=== PATIENT | female | born 1925 | race Caucasian/White ===

== ENCOUNTER 2016-08-18 13:57 | Emergency (ER) | payer MEDICARE, OTHER ==
[2016-08-18 14:46] VITALS: BP 121/59
--- NOTE | 2016-08-18 15:14 | EDM.PDOC ---
ED HPI Trauma - General Chief Complaint: Upper Extremity Injury/Pain Stated Complaint: LUMP IN LT ARM Time Seen by Provider: 08/18/16 14:50 Source: Reports: Patient History Limitations: Reports: No limitations - History of Present Illness INITIAL COMMENTS - FREE TEXT/NARRATIVE: History of present illness: [89-year-old female presenting with acute flareup of chronic pain in left shoulder. Patient indicates that she was doing some work in her house and does involve some lifting and an over abundance of extension of her arms. Patient has no degeneration in bilateral shoulders but presents today to address this acute pain.] Review of systems: As per history of present illness and below otherwise all systems reviewed and negative. Past medical history: As per history of present illness and as reviewed below otherwise noncontributory. Surgical history: As per history of present illness and as reviewed below otherwise noncontributory. Social history: No reported history of drug or alcohol abuse. Family history: As per history of present illness and as reviewed below otherwise noncontributory. Physical exam: HEENT: Atraumatic, normocephalic, pupils reactive, negative for conjunctival pallor or scleral icterus, mucous membranes moist, throat clear, neck supple, nontender, trachea midline. Lungs: Clear to auscultation, breath sounds equal bilaterally, chest nontender. Heart: S1S2, regular, negative for clicks, rubs, or JVD. Abdomen: Soft, nondistended, nontender. Negative for masses or hepatosplenomegaly. Negative for costovertebral tenderness. Pelvis: Stable nontender. Genitourinary: Deferred. Rectal: Deferred. Extremities: Crepitus to bilateral shoulders with some amount of tenderness on palpation as well as passive range of motion, PPP, good capillary refill to bilateral arms with consistent joint stiffness and guarding, negative for cords or calf pain. Neurovascular unremarkable. Neuro: Awake, alert, oriented. Cranial nerves II through XII unremarkable. Cerebellum unremarkable. Motor and sensory unremarkable throughout. Exam nonfocal. 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 Social & Family History - Tobacco Use Smoking Status *Q: Never Smoker Second Hand Smoke Exposure: No - Alcohol Use Days Per Week of Alcohol Use: 0 - Recreational Drug Use Recreational Drug Use: No Review of Systems - Review of Systems Review Of Systems: See Below (See history of present illness) Trauma Exam - Physical Exam Exam: See Below (See history of present illness) Course - Vital Signs Last Recorded V/S: Last Vital Signs Temp 36.8 C 08/18/16 14:10 Pulse 79 08/18/16 14:10 Resp 18 08/18/16 14:10 BP 121/59 L 08/18/16 14:10 Pulse Ox 95 08/18/16 14:10 - Orders/Labs/Meds Orders: Active Orders 24 hr Category Date Time Status Shoulder Comp Lt [CR] Stat Exams 08/18/16 14:58 Ordered Departure - Departure Time of Disposition: 15:32 Disposition: Home, Self-Care 01 Condition: good Clinical Impression: Shoulder pain, left Qualifiers: Chronicity: chronic Qualified Code(s): M25.512 - Pain in left shoulder; G89.29 - Other chronic pain Instructions: Shoulder Pain, [id number] Forms: ED Department Discharge Additional Instructions: The following information is given to patients seen in the emergency department who are being discharged to home. This information is to outline your options for follow-up care. We provide all patients seen in our emergency department with a follow-up referral. The need for follow-up, as well as the timing and circumstances, are variable depending upon the specifics of your emergency department visit. If you don't have a primary care physician on staff, we will provide you with a referral. We always advise you to contact your personal physician following an emergency department visit to inform them of the circumstance of the visit and for follow-up with them and/or the need for any referrals to a consulting specialist. The emergency department will also refer you to a specialist when appropriate. This referral assures that you have the opportunity for follow-up care with a specialist. All of these measure are taken in an effort to provide you with optimal care, which includes your follow-up. Under all circumstances we always encourage you to contact your private physician who remains a resource for coordinating your care. When calling for follow-up care, please make the office aware that this follow-up is from your recent emergency room visit. If for any reason you are refused follow-up, please contact the [facility] Emergency Department at and asked to speak to the emergency department charge nurse. Take medication as directed Followup with primary care provider Return to ED as needed as discussed - My Orders Last 24 Hours: My Active Orders 08/18/16 14:58 Shoulder Comp Lt [CR] Stat - Assessment/Plan Last 24 Hours: My Active Orders 08/18/16 14:58 Shoulder Comp Lt [CR] Stat
--- NOTE | 2016-08-18 15:24 | CR ---
EXAMINATION: Left shoulder HISTORY: Pain COMPARISON: None TECHNIQUE: 3 views FINDINGS: The severe joint space narrowing and osteoarthritic changes are noted within the left ian ohumeral joint. The humerus is high riding suggesting underlying rotator cuff arthropathy. Bone mine ralization appears osteopenic. No definite fracture or acute osseous abnormality. IMPRESSION: Severe osteoarthritic changes and joint space narrowing within the left glenohumeral agapito nt.
== END 2016-08-18 15:56 | disposition home or self-care (01) ==
LOC: MW.ED 13:57
DX: G89.29 Other chronic pain (principal); M25.512 Pain in left shoulder
CPT/HCPCS: 73030-26-LT; 73030-LT; 99283

== ENCOUNTER 2016-09-23 04:05 | Emergency (ER) | payer MEDICARE, OTHER ==
--- NOTE | 2016-09-23 04:36 | EDM.PDOC ---
[id number] Information: Reports: Patient History Limitations: Reports: No Limitations no pain verbalized Pain Score (Numeric/FACES): 0 - Related Data Allergies Allergy/AdvReac Type Severity Reaction Status Date / Time No Known Allergies Allergy Verified 03/06/14 08:39 Home Meds: Home Meds Azithromycin [Zithromax] 250 mg PO DAILY #6 tablet 09/23/16 [Rx] Prednisone [IMW: predniSONE] 60 mg PO WITHBREAKFAST #5 tab 09/23/16 [Rx] Past Medical History - Past Health History Medical/Surgical History: Denies Medical/Surgical History HEENT History: Reports: Hard of Hearing Cardiovascular History: Reports: None Musculoskeletal History: Reports: Other (See Below) 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 Social & Family History - Tobacco Use Smoking Status *Q: Never Smoker Second Hand Smoke Exposure: No - Caffeine Use Caffeine Use: Reports: Other - Alcohol Use Days Per Week of Alcohol Use: 0 - Recreational Drug Use Recreational Drug Use: No ED ROS GENERAL - Review of Systems Review Of Systems: See Below (Per history of present illness) ED EXAM, GENERAL - Physical Exam Exam: See Below (Per history of present illness) Course - Vital Signs Last Recorded V/S: Last Vital Signs Temp 36.6 C 09/23/16 06:05 Pulse 78 09/23/16 06:45 Resp 18 09/23/16 06:45 BP 125/75 09/23/16 06:45 Pulse Ox 95 09/23/16 06:45 - Orders/Labs/Meds Labs: Laboratory Tests 09/23/16 09/23/16 09/23/16 Range/Units 04:33 04:33 04:33 WBC 5.54 (4.0-11.0) K/uL RBC 4.62 (4.30-5.90) M/uL Hgb 12.9 (12.0-16.0) g/dL Hct 39.4 (36.0-46.0) % MCV 85.3 (80.0-98.0) fL MCH 27.9 (27.0-32.0) pg MCHC 32.7 (31.0-37.0) g/dL RDW Std Deviation 45.5 (28.0-62.0) fl RDW Coeff of Kamaljit 15 (11.0-15.0) % Plt Count 256 (150-400) K/uL MPV 9.60 (7.40-12.00) fL Neut % (Auto) 42.5 L (48.0-80.0) % Lymph % (Auto) 36.6 (16.0-40.0) % [place] % (Auto) 13.5 (0.0-15.0) % Eos % (Auto) 6.0 (0.0-7.0) % Baso % (Auto) 1.4 (0.0-1.5) % Neut # (Auto) 2.4 (1.4-5.7) K/uL Lymph # (Auto) 2.0 (0.6-2.4) K/uL [place] # (Auto) 0.8 (0.0-0.8) K/uL Eos # (Auto) 0.3 (0.0-0.7) K/uL Baso # (Auto) 0.1 (0.0-0.1) K/uL Nucleated RBC % 0.0 /100WBC Nucleated RBCs # 0 K/uL Sodium 141 (136-146) mmol/L Potassium 3.8 (3.5-5.1) mmol/L Chloride 107 (98-110) mmol/L Carbon Dioxide 21 (21-31) mmol/L BUN 13 (6.0-23.0) mg/dL Creatinine 0.7 (0.6-1.5) mg/dL Est Cr Clr Drug Dosing 45.07 mL/min Estimated GFR (MDRD) > 60.0 ml/min Glucose 99 (60-110) mg/dL Calcium 9.7 (8.8-10.8) mg/dL Total Bilirubin 0.6 (0.1-1.5) mg/dL AST 15 (5-40) IU/L ALT 9 (8-54) IU/L Alkaline Phosphatase 76 (40-150) Troponin I < 0.10 (0.0-0.29) NG/ML B-Natriuretic Peptide (<100) PG/ML Total Protein 6.9 (6.0-8.0) g/dL Albumin 3.8 (3.4-4.8) g/dL Globulin 3.1 (2.0-3.5) g/dL Albumin/Globulin Ratio 1.2 L (1.3-2.8) Urine Color Urine Appearance Urine pH (5.0-8.0) Ur Specific [place] (1.001-1.035) Urine Protein (NEGATIVE) mg/dL Urine Glucose (UA) (NEGATIVE) mg/dL Urine Ketones (NEGATIVE) mg/dL Urine Occult Blood (NEGATIVE) Urine Nitrite (NEGATIVE) Urine Bilirubin (NEGATIVE) Urine Urobilinogen (<2.0) EU/dL Ur Leukocyte Esterase (NEGATIVE) Urine RBC (0-2/HPF) Urine WBC (0-5/HPF) Ur Epithelial Cells (NONE-FEW) Urine Bacteria (NEGATIVE) 09/23/16 09/23/16 Range/Units 04:33 05:10 WBC (4.0-11.0) K/uL RBC (4.30-5.90) M/uL Hgb (12.0-16.0) g/dL Hct (36.0-46.0) % MCV (80.0-98.0) fL MCH (27.0-32.0) pg MCHC (31.0-37.0) g/dL RDW Std Deviation (28.0-62.0) fl RDW Coeff of Kamaljit (11.0-15.0) % Plt Count (150-400) K/uL MPV (7.40-12.00) fL Neut % (Auto) (48.0-80.0) % Lymph % (Auto) (16.0-40.0) % [place] % (Auto) (0.0-15.0) % Eos % (Auto) (0.0-7.0) % Baso % (Auto) (0.0-1.5) % Neut # (Auto) (1.4-5.7) K/uL Lymph # (Auto) (0.6-2.4) K/uL [place] # (Auto) (0.0-0.8) K/uL Eos # (Auto) (0.0-0.7) K/uL Baso # (Auto) (0.0-0.1) K/uL Nucleated RBC % /100WBC Nucleated RBCs # K/uL Sodium (136-146) mmol/L Potassium (3.5-5.1) mmol/L Chloride (98-110) mmol/L Carbon Dioxide (21-31) mmol/L BUN (6.0-23.0) mg/dL Creatinine (0.6-1.5) mg/dL Est Cr Clr Drug Dosing mL/min Estimated GFR (MDRD) ml/min Glucose (60-110) mg/dL Calcium (8.8-10.8) mg/dL Total Bilirubin (0.1-1.5) mg/dL AST (5-40) IU/L ALT (8-54) IU/L Alkaline Phosphatase (40-150) Troponin I (0.0-0.29) NG/ML B-Natriuretic Peptide 19 (<100) PG/ML Total Protein (6.0-8.0) g/dL Albumin (3.4-4.8) g/dL Globulin (2.0-3.5) g/dL Albumin/Globulin Ratio (1.3-2.8) Urine Color YELLOW Urine Appearance CLEAR Urine pH 6.5 (5.0-8.0) Ur Specific [place] <= 1.005 (1.001-1.035) Urine Protein NEGATIVE (NEGATIVE) mg/dL Urine Glucose (UA) NEGATIVE (NEGATIVE) mg/dL Urine Ketones NEGATIVE (NEGATIVE) mg/dL Urine Occult Blood NEGATIVE (NEGATIVE) Urine Nitrite NEGATIVE (NEGATIVE) Urine Bilirubin NEGATIVE (NEGATIVE) Urine Urobilinogen 0.2 (<2.0) EU/dL Ur Leukocyte Esterase SMALL (NEGATIVE) Urine RBC 0-1 (0-2/HPF) Urine WBC 0-3 (0-5/HPF) Ur Epithelial Cells RARE (NONE-FEW) Urine Bacteria RARE (NEGATIVE) Meds: Medications Discontinued Medications Generic Name Dose Route Start Last Admin Trade Name Mickie PRN Reason Stop Dose Admin Azithromycin 500 mg 09/23/16 06:18 09/23/16 06:26 Zithromax PO 09/23/16 06:19 500 mg NOW STA Administration Departure - Departure Time of Disposition: 06:25 Disposition: Home, Self-Care 01 Condition: Good Clinical Impression: COPD exacerbation - Discharge Information Prescriptions: Azithromycin [Zithromax] 250 mg PO DAILY #6 tablet Prednisone [IMW: predniSONE] 60 mg PO WITHBREAKFAST #5 tab Instructions: Chronic Obstructive Pulmonary Disease Exacerbation, [id number] Referrals: PCP,None [Primary Care Provider] - Forms: ED Department Discharge Additional Instructions: Your symptoms and findings tonight show that you had a COPD exacerbation. This means an attack of your wheezing that required treatment with medicines to open up her airways. Use her nebulizer at home as needed and finish prednisone once a day for 5 more days starting tomorrow. Prednisone is a strong anti- inflammatory that will help suppress inflammation in your lungs and keep your wheezing from coming back. Followup with your doctor today or tomorrow and return immediately for new severe or worsening symptoms or if you does change her mind and want to be admitted to the hospital ED HISTORY OF PRESENT ILLNESS - General Chief Complaint: Respiratory Problem Stated Complaint: DIFFICULTY BREATHING Time Seen by Provider: 09/23/16 04:19 Source of Information: Reports: Patient History Limitations: Reports: No Limitations - History of Present Illness INITIAL COMMENTS - FREE TEXT/NARRATIVE: HISTORY AND PHYSICAL: History of present illness: [89-year-old female lives at home history of COPD now with wheezing and increased shortness of breath. Patient states she has a nebulizer at home and uses it when she needs it but today has experienced subtotal relief. Denies chest pain. No fevers chills sweats or shaking chills.] Review of systems: As per history of present illness and below otherwise all systems reviewed and negative. Past medical history: As per history of present illness and as reviewed below otherwise noncontributory. Surgical history: As per history of present illness and as reviewed below otherwise noncontributory. Social history: No reported history of drug or alcohol abuse. Family history: As per history of present illness and as reviewed below otherwise noncontributory. Physical exam: HEENT: Atraumatic, normocephalic, pupils reactive, negative for conjunctival pallor or scleral icterus, mucous membranes moist, throat clear, neck supple, nontender, trachea midline. Lungs: Bilateral mild bronchospasm mild tachypnea, breath sounds equal bilaterally, chest nontender. Heart: S1S2, regular, negative for clicks, rubs, or JVD. Abdomen: Soft, nondistended, nontender. Negative for masses or hepatosplenomegaly. Negative for costovertebral tenderness. Pelvis: Stable nontender. Genitourinary: Deferred. Rectal: Deferred. Extremities: Atraumatic, negative for cords or calf pain. Neurovascular unremarkable. Neuro: Awake, alert, oriented. Cranial nerves grossly unremarkable. Cerebellum unremarkable. Motor and sensory unremarkable throughout. Exam nonfocal. Diagnostics: [Chest x-ray with left basilar opacity unchanged from prior study. Hyperinflation. Chronic changes. Interpreted by me, report reviewed EKG normal sinus rhythm at 81 normal axis no STEMI Therapeutics: [Neb given in route to hospital Medrol IV] Impression: COPD exacerbation] Acute bronchospasm Plan: [Signs and symptoms consistent with COPD exacerbation in elderly female with chronic respiratory disease. Full workup pending. Patient feels improved after Neb but still with persistent bronchospasm and mild tachypnea. findings of wheezing are bilateral. IV Solu-Medrol and DuoNeb administered. Definitive disposition and diagnosis as appropriate pending reevaluation and review of above. - Related Data Allergies/ADRs: Allergies Allergy/AdvReac Type Severity Reaction Status Date / Time No Known Allergies Allergy Verified 03/06/14 08:39 Home Meds: Home Meds Azithromycin [Zithromax] 250 mg PO DAILY #6 tablet 09/23/16 [Rx] Prednisone [IMW: predniSONE] 60 mg PO WITHBREAKFAST #5 tab 09/23/16 [Rx] Departure - Departure Time of Disposition: 06:23 Disposition: Home, Self-Care 01 Condition: Good Clinical Impression: COPD exacerbation Prescriptions: Azithromycin [Zithromax] 250 mg PO DAILY #6 tablet Prednisone [IMW: predniSONE] 60 mg PO WITHBREAKFAST #5 tab Instructions: Chronic Obstructive Pulmonary Disease Exacerbation, [id number] Referrals: PCP,None [Primary Care Provider] - Forms: ED Department Discharge Additional Instructions: Your symptoms and findings tonight show that you had a COPD exacerbation. This means an attack of your wheezing that required treatment with medicines to open up her airways. Use her nebulizer at home as needed and finish prednisone once a day for 5 more days starting tomorrow. Prednisone is a strong anti- inflammatory that will help suppress inflammation in your lungs and keep your wheezing from coming back. Followup with your doctor today or tomorrow and return immediately for new severe or worsening symptoms or if you does change her mind and want to be admitted to the hospital
[2016-09-23 05:02] LABS: CHLORIDE,CL 107 mmol/L (98-110); SODIUM,NA 141 mmol/L (136-146)
[2016-09-23] MEDS ORDERED: Azithromycin 250 MG Tab PO STA (06:18)
[2016-09-23 07:29] VITALS: BP 125/75
--- NOTE | 2016-09-23 12:44 | CR ---
EXAM DATE: 09/23/16 PATIENT'S AGE: 89 Patient: BEBE NAGEL Facility: [place], [place] Site . Site : [id number] Study: XRay Chest [id number] 4:45:26 AM Ordering Physician: Cipriano Norton Final Report: Indication: Shortness of breath Technique: Chest 1 view Comparison: 03/06/2014. Findings/Impression: Cardiovascular and mediastinum: Stable cardiomediastinal silhouette. An apparent hiatal hernia again noted. Lungs and pleural space: A persistent irregular left basilar opacity, not significantly changed. No consolidation or pleural effusions. Bones and soft tissues: No significant change. Dictated by Blaine Grullon MD @ 09/23/2016 4:57:22 AM Dictated by: Blaine Grullon MD @ 09/23/2016 04:57:31 (Electronic Signature) Report Signed by Proxy. [facility]
== END 2016-09-23 06:50 | disposition home or self-care (01) ==
LOC: MW.ED 04:05
DX: J44.1 Chronic obstructive pulmonary disease with (acute) exacerbation (principal); J98.01 Acute bronchospasm; Z79.899 Other long term (current) drug therapy
CPT/HCPCS: 36415; 71010; 80053; 81001; 83880; 84484; 85025; 93005; 99285; A9270; 99284

== ENCOUNTER 2017-02-18 12:18 | Inpatient (IN) | payer MEDICARE, OTHER ==
[2017-02-18] MEDS ORDERED: Acetaminophen 325 MG Tab PO PRN (14:35)
[2017-02-18] MEDS ORDERED: Sodium Chloride 0.9% 2.5 ML Syringe FLUSH PRN (14:35)
[2017-02-18] MEDS ORDERED: Albuterol 0.083% 2.5 MG/3 ML Neb Soln NEB PRN (14:35)
[2017-02-18] MEDS ORDERED: Azithromycin 250 MG Tab PO ONE (14:35)
[2017-02-18] MEDS ORDERED: Sodium Chloride 0.9% 1,000 ML IV SCH (14:45)
--- NOTE | 2017-02-18 14:49 | PCM.HP ---
H&P History of Present Illness - General Date of Service: 02/18/17 Admit Problem/Dx: Admission Diagnosis/Problem Admission Diagnosis/Problem Pneumonia Source of Information: Patient History Limitations: Reports: No Limitations - History of Present Illness Initial Comments - Free Text/Narative: This 89 year old female with no significant pmh presented to her PCP with concerns of dyspnea and cough. She reports this has been going on for about 1 month, but it has worsened the last couple days. She doesn't have a productive cough anymore, but did a few days ago. Denies fevers or sinus congestion. No chest pain or palpitations. She reprts lots of wheezing and dyspnea. She reports she doesn't like to take over the prescription medications, "they cause more trouble then they help". She only takes multivitamins at home. She doesn't smoke, rarely uses alcohol and no recreational drug use. At the clinic no leukocytosis noted, BMP WNL. CXR revealed infiltrate and patient had sats 89-90% on RA and dyspneic. She does live alone and direct admission requested for community acquired pneumonia. - Related Data Allergies/Adverse Reactions: Allergies Allergy/AdvReac Type Severity Reaction Status Date / Time No Known Allergies Allergy Verified 03/06/14 08:39 Home Medications: Home Meds Azithromycin [Zithromax] 250 mg PO DAILY #6 tablet 09/23/16 [Rx] Prednisone [IMW: predniSONE] 60 mg PO WITHBREAKFAST #5 tab 09/23/16 [Rx] Past Medical History - Past Health History Medical/Surgical History: Denies Medical/Surgical History HEENT History: Reports: Cataract (surgery to R eye for cataracts), Hard of Hearing Cardiovascular History: Reports: None. Denies: Afib, Blood Clots/VTE/DVT, CAD, High Cholesterol, Hypertension, [place] Respiratory History: Reports: SOB. Denies: COPD, PE, Sleep Apnea Gastrointestinal History: Reports: None. Denies: GERD, GI Bleed Genitourinary History: Reports: None. 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 Denies: CVA, TIA Psychiatric History: Reports: None. Denies: Alzheimers Disease, Anxiety, Depression Endocrine/Metabolic History: Reports: None. Denies: Diabetes, Type II, Hypothyroidism Hematologic History: Reports: None Immunologic History: Reports: None Oncologic (Cancer) History: Reports: None Dermatologic History: Reports: None - Infectious Disease History Infectious Disease History: Reports: None - Past Surgical History Head Surgeries/Procedures: Reports: None HEENT Surgical History: Reports: Cataract Surgery Cardiovascular Surgical History: Reports: None Respiratory Surgical History: Reports: None GI Surgical History: Reports: None Endocrine Surgical History: Reports: None Neurological Surgical History: Reports: None Musculoskeletal Surgical History: Reports: Knee Replacement Oncologic Surgical History: Reports: None Dermatological Surgical History: Reports: None Social & Family History - Family History Family Medical History: Noncontributory - Tobacco Use Smoking Status *Q: Never Smoker Second Hand Smoke Exposure: No - Caffeine Use Caffeine Use: Reports: Coffee, Tea - Alcohol Use Days Per Week of Alcohol Use: 1 Number of Drinks Per Day: 1 Total Drinks Per Week: 1 Date of Last Drink: 02/13/17 - Recreational Drug Use Recreational Drug Use: No - Living Situation & Occupation Living situation: Reports: Alone Occupation: Retired H&P Review of Systems - Review of Systems: Review Of Systems: See Below General: Reports: Decreased Appetite. Denies: Fever, Chills HEENT: Denies: Eye Pain, Headaches, Sinus Congestion, Sore Throat, Visual Changes Pulmonary: Reports: Shortness of Breath, Wheezing, Cough, Sputum. Denies: Hemoptysis Cardiovascular: Reports: No Symptoms. Denies: Chest Pain, Palpitations, Dyspnea on Exertion, Lightheadedness Gastrointestinal: Reports: No Symptoms. Denies: Abdominal Pain, Black Stool, Bloody Stool, Diarrhea, Distension, Nausea, Vomiting Genitourinary: Reports: No Symptoms. Denies: Dysuria, Frequency, Burning, Pain Skin: Reports: No Symptoms Neurological: Reports: No Symptoms. Denies: Confusion Hematologic/Lymphatic: Reports: No Symptoms Exam - Exam Exam: See Below - Vital Signs Vital Signs: Last Vital Signs Temp 97.1 F 02/18/17 12:26 Pulse 80 02/18/17 12:26 Resp 18 02/18/17 12:26 BP 140/66 02/18/17 12:26 Pulse Ox 92 L 02/18/17 12:26 Weight: 52.5 kg - Exam Quality Assessment: Supplemental Oxygen, DVT Prophylaxis General: Alert, Oriented, Cooperative HEENT: Conjunctiva Clear, Posterior Pharynx Clear. No: Mucosa Moist & [place] ( lips and tongue appear dry. ) Lungs: Rhonchi, Wheezing (throughout), Other (moist cough heard) Cardiovascular: Regular Rate, Regular Rhythm, Normal S1, Normal S2 GI/Abdominal Exam: Normal Bowel Sounds, Soft, Non-Tender, No Organomegaly, No Distention, No Abnormal Bruit, No Mass, Pelvis Stable Back Exam: Normal Inspection, Full Range of Motion, NT Extremities: Normal Inspection, Normal Range of Motion, Non-Tender, No Pedal Edema, Normal Capillary Refill Neuro Extensive - Mental Status: Alert, Oriented x3, Normal Mood/Affect, Normal Cognition Psychiatric: Alert, Normal Affect, Normal Mood *Q Meaningful Use (ADM) - VTE *Q VTE Criteria *Q: - Stroke *Q Stroke Criteria *Q: - AMI *Q AMI Criteria *Q: - Problem List (1) Community acquired pneumonia SNOMED Code(s): 352235023 ICD Code: J18.9 - PNEUMONIA, UNSPECIFIED ORGANISM Status: Acute Current Visit: Yes (2) Dyspnea SNOMED Code(s): 118017735 ICD Code: R06.00 - DYSPNEA, UNSPECIFIED Status: Acute Current Visit: No Onset Date: 02/21/14 Problem Details: subjective dyspnea Problem List Initiated/Reviewed/Updated: Yes Orders Last 24hrs: Active Orders 24 hr Category Date Time Status Patient Status [ADT] Routine ADT 02/18/17 14:35 Ordered Intake and Output [RC] QSHIFT Care 02/18/17 14:36 Ordered Oxygen Therapy [RC] PRN Care 02/18/17 14:35 Ordered RT Aerosol Therapy [RC] ASDIRECTED Care 02/18/17 14:38 Ordered Up With Assistance [RC] ASDIRECTED Care 02/18/17 14:35 Ordered VTE/DVT Education [RC] PER UNIT ROUTINE Care 02/18/17 14:35 Ordered Vital Signs [RC] Q4H Care 02/18/17 14:35 Ordered Regular Diet [DIET] Diet 02/18/17 Dinner Ordered BASIC METABOLIC PANEL,BMP [CHEM] AM Lab 02/19/17 05:11 Ordered CBC WITH AUTO DIFF [HEME] AM Lab 02/19/17 05:11 Ordered Acetaminophen [Tylenol] Med 02/18/17 14:35 Ordered 650 mg PO Q4H PRN Albuterol [Proventil Neb Soln] Med 02/18/17 14:35 Ordered 2.5 mg NEB Q2H PRN Albuterol/Ipratropium [DuoNeb 3.0-0.5 MG/3 ML] Med 02/18/17 14:38 Ordered 3 ml NEB Q4HRRT Azithromycin [Zithromax] Med 02/19/17 09:00 Ordered 250 mg PO Q24H Azithromycin [Zithromax] Med 02/18/17 14:35 Once 500 mg PO Q24H ONE Heparin Sodium Med 02/18/17 21:00 Ordered 5,000 units SUBCUT Q12HR Sodium Chloride 0.9% [Normal Saline] 1,000 ml Med 02/18/17 14:45 Ordered IV ASDIRECTED Sodium Chloride 0.9% [Saline Flush] Med 02/18/17 14:35 Ordered 2.5 ml FLUSH ASDIRECTED PRN cefTRIAXone [Rocephin in Dextrose,Iso-Osm 1 GM/50 ML] 1 Med 02/18/17 14:45 Ordered gm Premix Bag 1 bag IV Q24H Saline Lock Insert [OM.PC] Routine Oth 02/18/17 14:35 Ordered Resuscitation Status Routine Resus Stat 02/18/17 14:35 Ordered Medication Orders Acetaminophen (Tylenol) 650 mg PO Q4H PRN PRN Reason: Pain Albuterol (Proventil Neb Soln) 2.5 mg NEB Q2H PRN PRN Reason: Shortness Of Breath/wheezing Albuterol/Ipratropium (Duoneb 3.0-0.5 Mg/3 Ml) 3 ml NEB Q4HRRT [facility] Azithromycin (Zithromax) 500 mg PO Q24H ONE Stop: 02/18/17 14:36 Azithromycin (Zithromax) 250 mg PO Q24H [facility] Heparin Sodium (Porcine) (Heparin Sodium) 5,000 units SUBCUT Q12HR [facility] Ceftriaxone Sodium/Dextrose 1 (gm/ Premix) 50 mls @ 100 mls/hr IV Q24H [facility] Sodium Chloride (Normal Saline) 1,000 mls @ 75 mls/hr IV ASDIRECTED [facility] Stop: 02/19/17 04:04 Sodium Chloride (Saline Flush) 2.5 ml FLUSH ASDIRECTED PRN PRN Reason: Keep Vein Open Assessment/Plan Comment:: This 89 year old female admitted with community acquire pneumonia 1. CAP: Will treated with Azithromycin and Rocephin. Due to wheezing will add Solumderol 60 mg IV and monitor response. Duonebs and Oxygen PRN to keep sats 90 %. Sputum culture if possible. IS at bedside. Afebrile. Reviewed CXr from clinic , no official report, but hyperinflation is noted, no definite consolidation noted. Due to history of productive cough and hypoxia will continue to cover with antibiotics as well as Solumedrol. VTE prophylaxis: Heparin Dispo: 1-2 days pending improvement.
[2017-02-18] MEDS: cefTRIAXone 1 GM in Premix Bag 1 BAG IV SCH (15:54)
[2017-02-18] MEDS: methylPREDNISolone Sodium Succinate 125 MG/2 ML SDV IVPUSH SCH ×2 (16:03→22:29)
[2017-02-18] MEDS: Albuterol/Ipratropium 3.0-0.5 MG/3 ML Neb Soln NEB SCH ×3 (16:09→21:40)
[2017-02-18] MEDS: Heparin Sodium 5,000 Units/ML Vial SUBCUT SCH (20:31)
[2017-02-19] MEDS: Albuterol/Ipratropium 3.0-0.5 MG/3 ML Neb Soln NEB SCH ×6 (02:44→21:15)
[2017-02-19 06:16] LABS: CHLORIDE,CL 105 mmol/L (98-110); SODIUM,NA 137 mmol/L (136-146)
[2017-02-19] MEDS: methylPREDNISolone Sodium Succinate 125 MG/2 ML SDV IVPUSH SCH (06:41)
--- NOTE | 2017-02-19 08:34 | PCM.PN ---
- General Info Date of Service: 02/19/17 Admission Dx/Problem (Free Text): Admission Diagnosis/Problem Admission Diagnosis/Problem Pneumonia Subjective Update: Feeling better this morning, still having some wheezing, and SOB is better. No chest pain. "I feel just fine." Functional Status: Reports: Pain Controlled, Tolerating Diet, Ambulating, Urinating - Review of Systems General: Reports: No Symptoms. Denies: Fever HEENT: Reports: No Symptoms. Denies: Sore Throat, Visual Changes Pulmonary: Reports: Shortness of Breath, Wheezing Cardiovascular: Reports: No Symptoms. Denies: Chest Pain, Palpitations Gastrointestinal: Reports: No Symptoms. Denies: Abdominal Pain, Nausea, Vomiting Genitourinary: Reports: No Symptoms Neurological: Reports: No Symptoms Psychiatric: Reports: No Symptoms - Patient Data Vitals - Most Recent: Last Vital Signs Temp 97.6 F 02/19/17 07:47 Pulse 84 02/19/17 07:47 Resp 18 02/19/17 07:47 BP 133/58 L 02/19/17 07:47 Pulse Ox 92 L 02/19/17 07:47 Weight - Most Recent: 52.5 kg I&O - Last 24 Hours: Intake & Output 02/18/17 02/19/17 02/19/17 22:59 06:59 14:59 Intake Total 50 1700 Output Total 1650 Balance 50 50 Lab Results Last 24 Hours: Laboratory Results - last 24 hr 02/19/17 02/19/17 Range/Units 05:02 05:02 WBC 2.73 L (4.0-11.0) K/uL RBC 4.52 (4.30-5.90) M/uL Hgb 12.5 (12.0-16.0) g/dL Hct 38.7 (36.0-46.0) % MCV 85.6 (80.0-98.0) fL MCH 27.7 (27.0-32.0) pg MCHC 32.3 (31.0-37.0) g/dL RDW Std Deviation 45.6 (28.0-62.0) fl RDW Coeff of Kamaljit 15 (11.0-15.0) % Plt Count 236 (150-400) K/uL MPV 10.20 (7.40-12.00) fL Neut % (Auto) 86.4 H (48.0-80.0) % Lymph % (Auto) 11.0 L (16.0-40.0) % [place] % (Auto) 2.2 (0.0-15.0) % Eos % (Auto) 0.0 (0.0-7.0) % Baso % (Auto) 0.4 (0.0-1.5) % Neut # (Auto) 2.4 (1.4-5.7) K/uL Lymph # (Auto) 0.3 L (0.6-2.4) K/uL [place] # (Auto) 0.1 (0.0-0.8) K/uL Eos # (Auto) 0.0 (0.0-0.7) K/uL Baso # (Auto) 0.0 (0.0-0.1) K/uL Nucleated RBC % 0.0 /100WBC Nucleated RBCs # 0 K/uL Sodium 137 (136-146) mmol/L Potassium 4.2 (3.5-5.1) mmol/L Chloride 105 (98-110) mmol/L Carbon Dioxide 24 (21-31) mmol/L BUN 14 (6.0-23.0) mg/dL Creatinine 0.7 (0.6-1.5) mg/dL Est Cr Clr Drug Dosing 39.13 mL/min Estimated GFR (MDRD) > 60.0 ml/min Glucose 133 H (60-110) mg/dL Calcium 8.9 (8.8-10.8) mg/dL Tang Results Last 24 Hours: Microbiology 02/18/17 19:00 Gram Stain - Preliminary Sputum - Expectorated Med Orders - Current: Current Medications Acetaminophen (Tylenol) 650 mg PO Q4H PRN PRN Reason: Pain Albuterol (Proventil Neb Soln) 2.5 mg NEB Q2H PRN PRN Reason: Shortness Of Breath/wheezing Albuterol/Ipratropium (Duoneb 3.0-0.5 Mg/3 Ml) 3 ml NEB Q4HRRT [facility] Last Admin: 02/19/17 07:15 Dose: 3 ml Azithromycin (Zithromax) 250 mg PO Q24H ASIYA Heparin Sodium (Porcine) (Heparin Sodium) 5,000 units SUBCUT Q12HR [facility] Last Admin: 02/18/17 20:31 Dose: 5,000 units Ceftriaxone Sodium/Dextrose 1 (gm/ Premix) 50 mls @ 100 mls/hr IV Q24H [facility] Last Admin: 02/18/17 15:54 Dose: 100 mls/hr Methylprednisolone Sodium Succinate (Solu-Medrol) 60 mg IVPUSH Q8H [facility] Last Admin: 02/19/17 06:41 Dose: 60 mg Sodium Chloride (Saline Flush) 2.5 ml FLUSH ASDIRECTED PRN PRN Reason: Keep Vein Open Discontinued Medications Azithromycin (Zithromax) 500 mg PO Q24H ONE Stop: 02/18/17 14:36 Last Admin: 02/18/17 16:02 Dose: 500 mg Sodium Chloride (Normal Saline) 1,000 mls @ 75 mls/hr IV ASDIRECTED [facility] Stop: 02/19/17 04:04 Last Admin: 02/18/17 15:47 Dose: 75 mls/hr - Exam General: Alert, Oriented, Cooperative, No Acute Distress HEENT: Pupils Equal, Pupils Reactive, EOMI, Mucous Membr. Moist/[place] Neck: Supple Lungs: Normal Respiratory Effort, Wheezing (expiratory wheeze noted slightly, much improved from yesterday.) Cardiovascular: Regular Rate, Regular Rhythm GI/Abdominal Exam: Normal Bowel Sounds, Soft, Non-Tender, No Organomegaly, No Distention, No Abnormal Bruit, No Mass, Pelvis Stable Extremities: Normal Inspection, Normal Range of Motion, Non-Tender, No Pedal Edema, Normal Capillary Refill Psy/Mental Status: Alert, Normal Affect, Normal Mood - Problem List & Annotations (1) Community acquired pneumonia SNOMED Code(s): 244687194 Code(s): J18.9 - PNEUMONIA, UNSPECIFIED ORGANISM Status: Acute Current Visit: Yes (2) COPD exacerbation SNOMED Code(s): 009421468 Code(s): J44.1 - CHRONIC OBSTRUCTIVE PULMONARY DISEASE W (ACUTE) EXACERBATION Status: Acute Current Visit: No (3) Dyspnea SNOMED Code(s): 287759260 Code(s): R06.00 - DYSPNEA, UNSPECIFIED Status: Acute Current Visit: No Onset Date: 02/21/14 Annotation/Comment:: subjective dyspnea - Problem List Review Problem List Initiated/Reviewed/Updated: Yes - My Orders Last 24 Hours: My Active Orders 02/18/17 14:35 Patient Status [ADT] Routine Oxygen Therapy [RC] PRN Up With Assistance [RC] ASDIRECTED Vital Signs [RC] Q4H Acetaminophen [Tylenol] 650 mg PO Q4H PRN Albuterol [Proventil Neb Soln] 2.5 mg NEB Q2H PRN Sodium Chloride 0.9% [Saline Flush] 2.5 ml FLUSH ASDIRECTED PRN Saline Lock Insert [OM.PC] Routine Resuscitation Status Routine 02/18/17 14:36 Intake and Output [RC] Q12H 02/18/17 14:38 RT Aerosol Therapy [RC] ASDIRECTED Albuterol/Ipratropium [DuoNeb 3.0-0.5 MG/3 ML] 3 ml NEB Q4HRRT 02/18/17 15:00 cefTRIAXone [Rocephin in Dextrose,Iso-Osm 1 GM/50 ML] 1 gm Premix Bag 1 bag IV Q24H methylPREDNISolone Sod Succ [Solu-MEDROL] 60 mg IVPUSH Q8H 02/18/17 19:00 CULTURE SPUTUM + SMEAR [RM] Routine 02/18/17 21:00 Heparin Sodium 5,000 units SUBCUT Q12HR 02/18/17 Dinner Regular Diet [DIET] 02/19/17 16:00 Azithromycin [Zithromax] 250 mg PO Q24H - Plan Plan:: This 89 year old female admitted with community acquire pneumonia 1. CAP: Continue Azithromycin and Rocephin. Likely has some component of COPD, will discontinue Solumderol and start Prednisone 40 mg daily. Duonebs and Oxygen PRN to keep sats 90%. Sputum culture reveals gram + cocci in singles, chains and clusters. Will await TANG, clinically improving. IS at bedside. VTE prophylaxis: Heparin Dispo: 1-2 days pending improvement. Possible DC in am.
[2017-02-19] MEDS: Heparin Sodium 5,000 Units/ML Vial SUBCUT SCH ×2 (09:42→20:41)
[2017-02-19] MEDS: cefTRIAXone 1 GM in Premix Bag 1 BAG IV SCH (15:14)
[2017-02-19] MEDS: predniSONE 20 MG Tab PO SCH (15:20)
[2017-02-19] MEDS ORDERED: Azithromycin 250 MG Tab PO SCH (16:00)
[2017-02-20] MEDS: Albuterol/Ipratropium 3.0-0.5 MG/3 ML Neb Soln NEB SCH ×2 (02:15→05:38)
[2017-02-20 06:11] LABS: CHLORIDE,CL 107 mmol/L (98-110); SODIUM,NA 138 mmol/L (136-146)
[2017-02-20] MEDS: predniSONE 20 MG Tab PO SCH (08:03)
[2017-02-20] MEDS: Heparin Sodium 5,000 Units/ML Vial SUBCUT SCH (08:03)
[2017-02-20 08:11] VITALS: BP 131/71
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
== END 2017-02-20 09:20 | disposition home or self-care (01) | DRG 190 ==
LOC: MW.MS 12:18
PROVIDERS: ADMIT Internal Medicine; ATTEND Internal Medicine
DX: J44.0 Chronic obstructive pulmonary disease with (acute) lower respiratory infection (principal); J18.9 Pneumonia, unspecified organism; J44.1 Chronic obstructive pulmonary disease with (acute) exacerbation; R06.00 Dyspnea, unspecified; X02.0XXA Exposure to flames in controlled fire in building or structure, initial encounter; Y92.019 Unspecified place in single-family (private) house as the place of occurrence of the external cause; Z79.899 Other long term (current) drug therapy
CPT/HCPCS: 36415; 80048; 85025; 87070; 87205; A9270-GY; J0696; J1644; J2930; J7040

== ENCOUNTER 2017-02-26 12:54 | Emergency (ER) | payer MEDICARE, OTHER ==
[2017-02-26] MEDS ORDERED: Famotidine 20 MG/2 ML SDV IVPUSH ONE (13:31)
[2017-02-26] MEDS ORDERED: Aspirin 81 MG Tab.Chew PO ONE (13:31)
--- NOTE | 2017-02-26 13:32 | EDM.PDOC ---
ED HPI GENERAL MEDICAL PROBLEM - General Chief Complaint: Chest Pain Stated Complaint: PAIN IN RT LEG Time Seen by Provider: 02/26/17 13:15 Source of Information: Reports: Patient, Family History Limitations: Reports: No Limitations - History of Present Illness INITIAL COMMENTS - FREE TEXT/NARRATIVE: HISTORY AND PHYSICAL: History of present illness: Patient is an 89-year-old female who presents to the emergency room with complaints of pain which started around 9 AM in her right lower extremity and radiated up into her chest and bilateral shoulders. She states that she took an aspirin in the symptoms subsided. Told her family members of what occurred and they wanted her to come to be evaluated. Patient currently denies any chest pain , shortness of breath, abdominal pain, nausea or vomiting. Denies any fever or chills. Past medical history of pneumonia and COPD. Review of systems: As per history of present illness and below otherwise all systems reviewed and negative. Past medical history: As per history of present illness and as reviewed below otherwise noncontributory. Surgical history: As per history of present illness and as reviewed below otherwise noncontributory. Social history: No reported history of drug or alcohol abuse. Family history: As per history of present illness and as reviewed below otherwise noncontributory. Physical exam: Gen.: Well-developed and well-nourished 89-year-old female. Able to speak in full sentences without shortness of breath. Alert and oriented. HEENT: Atraumatic, normocephalic, pupils reactive, negative for conjunctival pallor or scleral icterus, mucous membranes moist, throat clear, neck supple, nontender, trachea midline. Hard of hearing. Lungs: Clear to auscultation, breath sounds equal bilaterally, chest nontender. Heart: S1S2, regular, negative for clicks, rubs, or JVD. Abdomen: Soft, nondistended, nontender. Negative for masses or hepatosplenomegaly. Negative for costovertebral tenderness. Pelvis: Stable nontender. Genitourinary: Deferred. Rectal: Deferred. Extremities: Atraumatic, negative for cords or calf pain. Neurovascular unremarkable. Neuro: Awake, alert, oriented. Cranial nerves II through XII unremarkable. Cerebellum unremarkable. Motor and sensory unremarkable throughout. Exam nonfocal. Reviewed the diagnostics with both patient and family members. Currently her labs and EKG show no current evidence of an acute [place]. I did offer an admission at this time due to her age and symptoms. Patient refused admission at this time stating she was unable to afford it. Family members state that they also would be leaving today from [place] and would not be here to stay at the hospital with her. Family also encouraged her to go home and a neighbor friend would be able to check up on her as needed. Will prescribe patient Levaquin 500mg daily x10day for a residual infiltrate in the left lower lobe. A shunt had completed azithromycin at home. This was reviewed and discussed with Dr. Montano. Patient family members are agreeable to plan of care, denies any further questions at this time. Diagnostics: CBC, CMP, troponin, EKG, one view chest x-ray Therapeutics: Aspirin, Pepcid IV Impression: Unresolved Pneumonia Plan: 1. Please take a baby aspirin daily. Take your antibiotic as prescribed. Follow- up with your primary care provider in the next 1-2 days. 2. Declined admission at this time to rule out myocardial infarction. If your chest pain should return please call an ambulance and presented to the emergency room as soon as possible. 3. Return to the ED as needed as discussed Definitive disposition and diagnosis as appropriate pending reevaluation and review of above. Onset: Today Location: Reports: Chest, Abdomen, Lower Extremity, Right Bilateral Shoulder Pain Score (Numeric/FACES): 4 - Related Data Allergies Allergy/AdvReac Type Severity Reaction Status Date / Time No Known Allergies Allergy Verified 02/26/17 13:17 Home Meds: Home Meds Albuterol/Ipratropium [DuoNeb 3.0-0.5 MG/3 ML] 3 ml NEB Q4HRRT PRN #1 box [Rx] Past Medical History - Past Health History Medical/Surgical History: Denies Medical/Surgical History HEENT History: Reports: Cataract, Hard of Hearing Cardiovascular History: Reports: None Respiratory History: Reports: SOB Gastrointestinal History: Reports: None Genitourinary History: Reports: None 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 Musculoskeletal History: Reports: Other (See Below) 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 Neurological History: Reports: None Psychiatric History: Reports: None Endocrine/Metabolic History: Reports: None Hematologic History: Reports: None Immunologic History: Reports: None Oncologic (Cancer) History: Reports: None Dermatologic History: Reports: None - Infectious Disease History Infectious Disease History: Reports: Chicken Pox - Past Surgical History Head Surgeries/Procedures: Reports: None HEENT Surgical History: Reports: Cataract Surgery Cardiovascular Surgical History: Reports: None Respiratory Surgical History: Reports: None GI Surgical History: Reports: None Endocrine Surgical History: Reports: None Neurological Surgical History: Reports: None Musculoskeletal Surgical History: Reports: Knee Replacement Oncologic Surgical History: Reports: None Dermatological Surgical History: Reports: None Social & Family History - Family History Family Medical History: Noncontributory - Tobacco Use Smoking Status *Q: Never Smoker Second Hand Smoke Exposure: No - Caffeine Use Caffeine Use: Reports: Coffee - Alcohol Use Days Per Week of Alcohol Use: 1 Number of Drinks Per Day: 1 Total Drinks Per Week: 1 - Recreational Drug Use Recreational Drug Use: No - Living Situation & Occupation Living situation: Reports: Alone Occupation: Retired ED ROS GENERAL - Review of Systems Review Of Systems: ROS reveals no pertinent complaints other than HPI. ED EXAM, GENERAL - Physical Exam Exam: See Below (See dictation) EKG INTERPRETATION EKG Date: 02/26/17 Time: 13:21 Rhythm: NSR Rate (Beats/Min): 68 EKG Interpretation Comments: This was reviewed by me and Dr. Montano Course - Vital Signs Last Recorded V/S: Last Vital Signs Temp 36.4 C 02/26/17 13:19 Pulse 121 H 02/26/17 13:19 Resp 18 02/26/17 13:19 BP 121/95 H 02/26/17 13:19 Pulse Ox 94 L 02/26/17 13:19 - Orders/Labs/Meds Orders: Active Orders 24 hr Category Date Time Status EKG Documentation Completion [RC] STAT Care 02/26/17 13:31 Active Labs: Laboratory Tests 02/26/17 02/26/17 02/26/17 Range/Units 13:35 13:35 13:35 WBC 9.52 (4.0-11.0) K/uL RBC 4.92 (4.30-5.90) M/uL Hgb 14.0 (12.0-16.0) g/dL Hct 42.5 (36.0-46.0) % MCV 86.4 (80.0-98.0) fL MCH 28.5 (27.0-32.0) pg MCHC 32.9 (31.0-37.0) g/dL RDW Std Deviation 48.0 (28.0-62.0) fl RDW Coeff of Kamaljit 15 (11.0-15.0) % Plt Count 266 (150-400) K/uL MPV 9.60 (7.40-12.00) fL Neut % (Auto) 68.1 (48.0-80.0) % Lymph % (Auto) 17.9 (16.0-40.0) % [place] % (Auto) 13.0 (0.0-15.0) % Eos % (Auto) 0.9 (0.0-7.0) % Baso % (Auto) 0.1 (0.0-1.5) % Neut # (Auto) 6.5 H (1.4-5.7) K/uL Lymph # (Auto) 1.7 (0.6-2.4) K/uL [place] # (Auto) 1.2 H (0.0-0.8) K/uL Eos # (Auto) 0.1 (0.0-0.7) K/uL Baso # (Auto) 0.0 (0.0-0.1) K/uL Nucleated RBC % 0.0 /100WBC Nucleated RBCs # 0 K/uL Sodium 138 (136-146) mmol/L Potassium 4.1 (3.5-5.1) mmol/L Chloride 104 (98-110) mmol/L Carbon Dioxide 26 (21-31) mmol/L BUN 22 (6.0-23.0) mg/dL Creatinine 0.7 (0.6-1.5) mg/dL Est Cr Clr Drug Dosing 39.13 mL/min Estimated GFR (MDRD) > 60.0 ml/min Glucose 91 (60-110) mg/dL Calcium 8.9 (8.8-10.8) mg/dL Total Bilirubin 0.5 (0.1-1.5) mg/dL AST 13 (5-40) IU/L ALT 9 (8-54) IU/L Alkaline Phosphatase 73 (40-150) Troponin I < 0.10 (0.0-0.29) NG/ML Total Protein 6.3 (6.0-8.0) g/dL Albumin 3.4 (3.4-4.8) g/dL Globulin 2.9 (2.0-3.5) g/dL Albumin/Globulin Ratio 1.2 L (1.3-2.8) Meds: Medications Discontinued Medications Generic Name Dose Route Start Last Admin Trade Name Mickie PRN Reason Stop Dose Admin Aspirin 324 mg 02/26/17 13:31 Aspirin PO 02/26/17 13:32 ONETIME ONE Famotidine 20 mg 02/26/17 13:31 02/26/17 13:54 Pepcid IVPUSH 02/26/17 13:32 20 mg ONETIME ONE Administration Departure - Departure Time of Disposition: 15:09 Disposition: Against Medical Advice 07 Clinical Impression: Unresolved pneumonia Chest pain Qualifiers: Chest pain type: unspecified Qualified Code(s): R07.9 - Chest pain, unspecified Referrals: Lee Ann Frank NP [Primary Care Provider] - Forms: ED Department Discharge Additional Instructions: My general discharge The following information is given to patients seen in the emergency department who are being discharged to home. This information is to outline your options for follow-up care. We provide all patients seen in our emergency department with a follow-up referral. The need for follow-up, as well as the timing and circumstances, are variable depending upon the specifics of your emergency department visit. If you don't have a primary care physician on staff, we will provide you with a referral. We always advise you to contact your personal physician following an emergency department visit to inform them of the circumstance of the visit and for follow-up with them and/or the need for any referrals to a consulting specialist. The emergency department will also refer you to a specialist when appropriate. This referral assures that you have the opportunity for follow-up care with a specialist. All of these measure are taken in an effort to provide you with optimal care, which includes your follow-up. Under all circumstances we always encourage you to contact your private physician who remains a resource for coordinating your care. When calling for follow-up care, please make the office aware that this follow-up is from your recent emergency room visit. If for any reason you are refused follow-up, please contact the [facility] Emergency Department at and asked to speak to the emergency department charge nurse. [facility] [address] [place] [id number] 1. Please take a baby aspirin daily. Take your antibiotic as prescribed. Follow- up with your primary care provider in the next 1-2 days. 2. Declined admission at this time to rule out myocardial infarction. If your chest pain should return please call an ambulance and presented to the emergency room as soon as possible. 3. Return to the ED as needed as discussed - My Orders Last 24 Hours: My Active Orders 02/26/17 13:31 EKG Documentation Completion [RC] STAT - Assessment/Plan Last 24 Hours: My Active Orders 02/26/17 13:31 EKG Documentation Completion [RC] STAT
[2017-02-26 14:11] LABS: CHLORIDE,CL 104 mmol/L (98-110); SODIUM,NA 138 mmol/L (136-146)
--- NOTE | 2017-02-26 14:20 | CR ---
EXAMINATION: Portable chest radiograph. HISTORY: Shortness of breath. FINDINGS: The trachea is midline. The cardiomediastinal silhouette is within normal limits. Mild left basilar a telectasis and/or infiltrate noted. No pleural effusion or pneumothorax. Trace aortic calcifications. 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 Osseous structures otherwise appear osteopenic. IMPRESSION: 1. Mild left basilar atelectasis and/or infiltrate.
[2017-02-26 15:33] VITALS: BP 120/71
== END 2017-02-26 15:30 | disposition left against medical advice (07) ==
LOC: MW.ED 12:54
DX: J18.9 Pneumonia, unspecified organism (principal); R07.9 Chest pain, unspecified
CPT/HCPCS: 36415; 71010; 71010-26; 80053; 84484; 85025; 93005; 96374; 99284; 99285-25

== ENCOUNTER 2017-03-31 13:42 | Observation (INO) | payer MEDICARE, OTHER ==
[2017-03-31] MEDS ORDERED: methylPREDNISolone Sodium Succinate 125 MG/2 ML SDV IVPUSH ONE (13:53)
--- NOTE | 2017-03-31 13:55 | EDM.PDOC ---
ED HPI GENERAL MEDICAL PROBLEM - General Chief Complaint: Respiratory Problem Stated Complaint: SHORTNESS OF BREATH Time Seen by Provider: 03/31/17 13:54 Source of Information: Reports: Patient - History of Present Illness INITIAL COMMENTS - FREE TEXT/NARRATIVE: HISTORY AND PHYSICAL: History of present illness: [Ike has a history of COPD and recent treatment for pneumonia she presents with shortness of breath, she has been taking nebulizer treatments almost continuously all morning prior to arrival here she is comfortable at rest breathing is nonlabored she is hard of hearing but otherwise can speak easily in full sentences however with minimal exertion just standing at bedside without oxygen her O2 saturation drops to 85% Fever nausea vomiting chills sweats no chest pain headache dizziness palpitation no bowel or urine symptoms] Review of systems: As per history of present illness and below otherwise all systems reviewed and negative. Past medical history: As per history of present illness and as reviewed below otherwise noncontributory. Surgical history: As per history of present illness and as reviewed below otherwise noncontributory. Social history: No reported history of drug or alcohol abuse. Family history: As per history of present illness and as reviewed below otherwise noncontributory. Physical exam: HEENT: Atraumatic, normocephalic, pupils reactive, negative for conjunctival pallor or scleral icterus, mucous membranes moist, throat clear, neck supple, nontender, trachea midline. Lungs: Clear to auscultation, breath sounds equal bilaterally, chest nontender. Heart: S1S2, regular, negative for clicks, rubs, or JVD. Abdomen: Soft, nondistended, nontender. Negative for masses or hepatosplenomegaly. Negative for costovertebral tenderness. Pelvis: Stable nontender. Genitourinary: Deferred. Rectal: Deferred. Extremities: Atraumatic, negative for cords or calf pain. Neurovascular unremarkable. Neuro: Awake, alert, oriented. Cranial nerves II through XII unremarkable. Cerebellum unremarkable. Motor and sensory unremarkable throughout. Exam nonfocal. Diagnostics: [CBC CMP UA troponin EKG chest 1 view ] Therapeutics: [Normal saline 1 25 mL per hour Solu-Medrol 125 mg IV ] Impression: Hypoxia patient has been 90% with 2 L with minimal exertion i.e. standing she drops to 85 on room air [COPD Shortness of breath] Elevated lipase without pain Chronic history of baseline Definitive disposition and diagnosis as appropriate pending reevaluation and review of above. 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 Musculoskeletal History: Reports: Other (See Below) 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 Neurological History: Reports: None Psychiatric History: Reports: None Endocrine/Metabolic History: Reports: None Hematologic History: Reports: None Immunologic History: Reports: None Oncologic (Cancer) History: Reports: None Dermatologic History: Reports: None - Infectious Disease History Infectious Disease History: Reports: Chicken Pox - Past Surgical History Head Surgeries/Procedures: Reports: None HEENT Surgical History: Reports: Cataract Surgery Cardiovascular Surgical History: Reports: None Respiratory Surgical History: Reports: None GI Surgical History: Reports: None Endocrine Surgical History: Reports: None Neurological Surgical History: Reports: None Musculoskeletal Surgical History: Reports: Knee Replacement Oncologic Surgical History: Reports: None Dermatological Surgical History: Reports: None Social & Family History - Family History Family Medical History: Noncontributory - Tobacco Use Smoking Status *Q: Never Smoker Second Hand Smoke Exposure: No - Caffeine Use Caffeine Use: Reports: Coffee - Alcohol Use Days Per Week of Alcohol Use: 1 Number of Drinks Per Day: 1 Total Drinks Per Week: 1 - Recreational Drug Use Recreational Drug Use: No - Living Situation & Occupation Living situation: Reports: Alone Occupation: Retired ED ROS GENERAL - Review of Systems Review Of Systems: ROS reveals no pertinent complaints other than HPI. ED EXAM, GENERAL - Physical Exam Exam: See Below Course - Vital Signs Last Recorded V/S: Last Vital Signs Temp 36.6 C 04/02/17 04:00 Pulse 78 04/02/17 04:00 Resp 16 04/02/17 04:00 BP 104/58 L 04/02/17 04:00 Pulse Ox 96 04/02/17 04:00 - Orders/Labs/Meds Orders: Medication Orders Acetaminophen (Tylenol) 650 mg PO Q4H PRN PRN Reason: Pain (Mild 1-3)/fever Albuterol/Ipratropium (Duoneb 3.0-0.5 Mg/3 Ml) 3 ml NEB Q4HRRT [facility] Last Admin: 04/02/17 06:33 Dose: 3 ml Admin: 04/02/17 01:30 Dose: 3 ml Admin: 04/01/17 22:00 Dose: 3 ml Admin: 04/01/17 19:14 Dose: 3 ml Admin: 04/01/17 14:30 Dose: 3 ml Admin: 04/01/17 10:14 Dose: 3 ml Bisacodyl (Dulcolax) 5 mg PO DAILY PRN PRN Reason: Constipation Docusate Sodium (Colace) 100 mg PO BID [facility] Last Admin: 04/02/17 08:01 Dose: 100 mg Admin: 04/01/17 22:20 Dose: 100 mg Admin: 04/01/17 08:04 Dose: 100 mg Admin: 03/31/17 20:16 Dose: 100 mg Heparin Sodium (Porcine) (Heparin Sodium) 5,000 units SUBCUT Q12H [facility] Last Admin: 04/02/17 08:01 Dose: 5,000 units Admin: 04/01/17 22:21 Dose: 5,000 units Admin: 04/01/17 08:04 Dose: 5,000 units Admin: 03/31/17 20:16 Dose: 5,000 units Levofloxacin/Dextrose 750 mg/ (Premix) 150 mls @ 100 mls/hr IV Q48H [facility] Methylprednisolone Sodium Succinate (Solu-Medrol) 125 mg IVPUSH Q8H [facility] Last Admin: 04/02/17 08:02 Dose: 125 mg Admin: 04/02/17 01:30 Dose: 125 mg Admin: 04/01/17 16:07 Dose: 125 mg Admin: 04/01/17 08:04 Dose: 125 mg Admin: 04/01/17 01:30 Dose: 125 mg Ondansetron HCl (Zofran Odt) 4 mg PO Q4H PRN PRN Reason: nausea, able to take PO Temazepam (Restoril) 15 mg PO BEDTIME PRN PRN Reason: Sleep Labs: Laboratory Tests 03/31/17 03/31/17 03/31/17 Range/Units 13:55 13:55 13:55 WBC 5.45 (4.0-11.0) K/uL RBC 4.73 (4.30-5.90) M/uL Hgb 13.5 (12.0-16.0) g/dL Hct 41.2 (36.0-46.0) % MCV 87.1 (80.0-98.0) fL MCH 28.5 (27.0-32.0) pg MCHC 32.8 (31.0-37.0) g/dL RDW Std Deviation 48.8 (28.0-62.0) fl RDW Coeff of Kamaljit 15 (11.0-15.0) % Plt Count 229 (150-400) K/uL MPV 9.60 (7.40-12.00) fL Neut % (Auto) 55.1 (48.0-80.0) % Lymph % (Auto) 20.4 (16.0-40.0) % [place] % (Auto) 12.8 (0.0-15.0) % Eos % (Auto) 9.9 H (0.0-7.0) % Baso % (Auto) 1.8 H (0.0-1.5) % Neut # (Auto) 3.0 (1.4-5.7) K/uL Lymph # (Auto) 1.1 (0.6-2.4) K/uL [place] # (Auto) 0.7 (0.0-0.8) K/uL Eos # (Auto) 0.5 (0.0-0.7) K/uL Baso # (Auto) 0.1 (0.0-0.1) K/uL Nucleated RBC % 0.0 /100WBC Nucleated RBCs # 0 K/uL Sodium 139 (136-146) mmol/L Potassium 4.2 (3.5-5.1) mmol/L Chloride 107 (98-110) mmol/L Carbon Dioxide 21 (21-31) mmol/L BUN 10 (6.0-23.0) mg/dL Creatinine 0.7 (0.6-1.5) mg/dL Est Cr Clr Drug Dosing 39.13 mL/min Estimated GFR (MDRD) > 60.0 ml/min Glucose 113 H (60-110) mg/dL Calcium 9.2 (8.8-10.8) mg/dL Total Bilirubin 0.6 (0.1-1.5) mg/dL AST 20 (5-40) IU/L ALT 11 (8-54) IU/L Alkaline Phosphatase 84 (40-150) Creatine Kinase 47 (9-236) IU/L CK-MB (CK-2) 2.2 (0-6.6) ng/ml Troponin I < 0.10 (0.0-0.29) NG/ML B-Natriuretic Peptide 81 (<100) PG/ML Total Protein 6.9 (6.0-8.0) g/dL Albumin 3.8 (3.4-4.8) g/dL Globulin 3.1 (2.0-3.5) g/dL Albumin/Globulin Ratio 1.2 L (1.3-2.8) Amylase 59 (10-90) U/L Lipase 153 H (7-80) U/L Meds: Medications Generic Name Dose Route Start Last Admin Trade Name Freq PRN Reason Stop Dose Admin Acetaminophen 650 mg 03/31/17 16:37 Tylenol PO Q4H PRN Pain (Mild 1-3)/fever Albuterol/Ipratropium 3 ml 04/01/17 10:00 04/02/17 06:33 Duoneb 3.0-0.5 Mg/3 Ml NEB 3 ml Q4HRRT ASIYA Administration Bisacodyl 5 mg 03/31/17 16:37 Dulcolax PO DAILY PRN Constipation Docusate Sodium 100 mg 03/31/17 21:00 04/02/17 08:01 Colace PO 100 mg BID ASIYA Administration Heparin Sodium (Porcine) 5,000 units 03/31/17 21:00 04/02/17 08:01 Heparin Sodium SUBCUT 5,000 units Q12H ASIYA Administration Levofloxacin/Dextrose 750 mg/ 150 mls @ 100 mls/hr 04/02/17 16:00 Premix IV Q48H [facility] Methylprednisolone Sodium Succinate 125 mg 04/01/17 01:00 04/02/17 08:02 Solu-Medrol IVPUSH 125 mg Q8H ASIYA Administration Ondansetron HCl 4 mg 03/31/17 16:37 Zofran Odt PO Q4H PRN nausea, able to take PO Temazepam 15 mg 03/31/17 16:37 Restoril PO BEDTIME PRN Sleep Discontinued Medications Generic Name Dose Route Start Last Admin Trade Name Freq PRN Reason Stop Dose Admin Albuterol/Ipratropium 3 ml 03/31/17 15:25 03/31/17 15:31 Duoneb 3.0-0.5 Mg/3 Ml NEB 03/31/17 15:26 3 ml ONETIME ONE Administration Albuterol/Ipratropium 3 ml 03/31/17 16:37 04/01/17 05:46 Duoneb 3.0-0.5 Mg/3 Ml NEB 3 ml Q4HRRT PRN Administration Shortness Of Breath/wheezing Sodium Chloride 1,000 mls @ 125 mls/hr 03/31/17 14:00 04/01/17 01:30 Normal Saline IV 125 mls/hr STAT ASIYA Administration Levofloxacin/Dextrose 750 mg/ 150 mls @ 100 mls/hr 03/31/17 16:10 03/31/17 16 :23 Premix IV 03/31/17 17:39 100 mls/hr ONETIME ONE Administration Methylprednisolone Sodium Succinate 125 mg 03/31/17 13:53 03/31/17 14:31 Solu-Medrol IVPUSH 03/31/17 13:54 125 mg ONETIME ONE Administration Departure - Departure Time of Disposition: 08:11 Disposition: Refer to Observation Condition: Poor Clinical Impression: Hypoxia - Discharge Information
[2017-03-31 14:25] LABS: CHLORIDE,CL 107 mmol/L (98-110); SODIUM,NA 139 mmol/L (136-146)
[2017-03-31] MEDS: Sodium Chloride 0.9% 1,000 ML IV SCH (14:29)
--- NOTE | 2017-03-31 14:42 | CR ---
EXAMINATION: Portable chest radiograph. HISTORY: Shortness of breath. FINDINGS: The trachea is midline. The cardiomediastinal silhouette is within normal limits. There is minimal at electasis/infiltrate within the left lung base. Chronic interstitial changes and hyperinflation other frazier noted. Osseous structures appear osteopenic. IMPRESSION: 1. Minimal left basilar atelectasis/infiltrate with overlying chronic interstitial changes.
[2017-03-31] MEDS ORDERED: Albuterol/Ipratropium 3.0-0.5 MG/3 ML Neb Soln NEB ONE (15:25)
[2017-03-31] MEDS ORDERED: Levofloxacin/Dextrose 5%-Water 750 MG in Premix Bag 1 BAG IV ONE (16:10)
--- NOTE | 2017-03-31 16:34 | PCM.HP ---
H&P History of Present Illness - General Date of Service: 03/31/17 Admit Problem/Dx: Admission Diagnosis/Problem Admission Diagnosis/Problem Hypoxia - History of Present Illness Initial Comments - Free Text/Narative: She was seen in the ED today with complaint being dyspnea and productive cough. She was noted to be hypoxic and hospitalization was recommended by Dr Quinones. She does not use home oxygen. - Related Data Allergies/Adverse Reactions: Allergies Allergy/AdvReac Type Severity Reaction Status Date / Time No Known Allergies Allergy Verified 03/31/17 13:54 Home Medications: Home Meds Albuterol/Ipratropium [DuoNeb 3.0-0.5 MG/3 ML] 3 ml NEB Q4HRRT PRN #1 box [Rx] Past Medical History - Past Health History Medical/Surgical History: Denies Medical/Surgical History HEENT History: Reports: Cataract, Hard of Hearing Cardiovascular History: Reports: None Respiratory History: Reports: COPD, SOB Gastrointestinal History: Reports: None. Denies: Cirrhosis Genitourinary History: Reports: None. 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 Denies: CVA Psychiatric History: Reports: None Endocrine/Metabolic History: Reports: None. Denies: Diabetes, Type II Hematologic History: Reports: None Immunologic History: Reports: None Oncologic (Cancer) History: Reports: None Dermatologic History: Reports: None - Infectious Disease History Infectious Disease History: Reports: Chicken Pox - Past Surgical History Head Surgeries/Procedures: Reports: None HEENT Surgical History: Reports: Cataract Surgery Cardiovascular Surgical History: Reports: None Respiratory Surgical History: Reports: None GI Surgical History: Reports: None Endocrine Surgical History: Reports: None Neurological Surgical History: Reports: None Musculoskeletal Surgical History: Reports: Knee Replacement Oncologic Surgical History: Reports: None Dermatological Surgical History: Reports: None Social & Family History - Family History Family Medical History: Noncontributory - Tobacco Use Smoking Status *Q: Never Smoker Second Hand Smoke Exposure: No - Caffeine Use Caffeine Use: Reports: Coffee - Alcohol Use Days Per Week of Alcohol Use: 1 Number of Drinks Per Day: 1 Total Drinks Per Week: 1 - Recreational Drug Use Recreational Drug Use: No - Living Situation & Occupation Living situation: Reports: Alone Occupation: Retired H&P Review of Systems - Review of Systems: Review Of Systems: See Below General: Denies: Fever, Chills HEENT: Reports: Other (chronic hearing deficit) Pulmonary: Reports: Shortness of Breath, Cough, Sputum Cardiovascular: Denies: Chest Pain, Palpitations, Edema Gastrointestinal: Denies: Abdominal Pain, Black Stool, Bloody Stool, Hematemesis , Hematochezia, Nausea, Vomiting Genitourinary: Denies: Dysuria, Frequency, Hematuria Skin: Denies: Cyanosis Exam - Exam Exam: See Below - Vital Signs Vital Signs: Last Vital Signs Temp 97.8 F 03/31/17 13:49 Pulse 86 03/31/17 16:16 Resp 18 03/31/17 16:16 BP 126/74 03/31/17 16:16 Pulse Ox 96 03/31/17 16:16 Weight: 54 kg - Exam Quality Assessment: Supplemental Oxygen General: Alert, Oriented HEENT: No: Hearing Intact (hard of hearing) Neck: Supple, Trachea Midline Lungs: Rhonchi (diffuse coarse rhonchi) Cardiovascular: Regular Rate, Regular Rhythm GI/Abdominal Exam: Soft, Non-Tender (Female) Exam: Deferred Rectal (Female) Exam: Deferred Back Exam: No: CVA Tenderness (L), CVA Tenderness (R) Extremities: No Pedal Edema, Other (normal distal capillary refill; bilateral bunion deformity) Skin: Warm. No: [place] Neurological: Cranial Nerves Intact (except hard of hearing) Neuro Extensive - Mental Status: Alert, Normal Mood/Affect Neuro Extensive - Motor, Sensory, Reflexes: No: Facial palsy (L), Facial Palsy ( R), Hemeplagia (R), Hemeplagia (L) Psychiatric: Alert. No: Agitated - Patient Data Lab Results Last 24 hrs: Laboratory Results - last 24 hr 03/31/17 03/31/17 03/31/17 Range/Units 13:55 13:55 13:55 WBC 5.45 (4.0-11.0) K/uL RBC 4.73 (4.30-5.90) M/uL Hgb 13.5 (12.0-16.0) g/dL Hct 41.2 (36.0-46.0) % MCV 87.1 (80.0-98.0) fL MCH 28.5 (27.0-32.0) pg MCHC 32.8 (31.0-37.0) g/dL RDW Std Deviation 48.8 (28.0-62.0) fl RDW Coeff of Kamaljit 15 (11.0-15.0) % Plt Count 229 (150-400) K/uL MPV 9.60 (7.40-12.00) fL Neut % (Auto) 55.1 (48.0-80.0) % Lymph % (Auto) 20.4 (16.0-40.0) % [place] % (Auto) 12.8 (0.0-15.0) % Eos % (Auto) 9.9 H (0.0-7.0) % Baso % (Auto) 1.8 H (0.0-1.5) % Neut # (Auto) 3.0 (1.4-5.7) K/uL Lymph # (Auto) 1.1 (0.6-2.4) K/uL [place] # (Auto) 0.7 (0.0-0.8) K/uL Eos # (Auto) 0.5 (0.0-0.7) K/uL Baso # (Auto) 0.1 (0.0-0.1) K/uL Nucleated RBC % 0.0 /100WBC Nucleated RBCs # 0 K/uL Sodium 139 (136-146) mmol/L Potassium 4.2 (3.5-5.1) mmol/L Chloride 107 (98-110) mmol/L Carbon Dioxide 21 (21-31) mmol/L BUN 10 (6.0-23.0) mg/dL Creatinine 0.7 (0.6-1.5) mg/dL Est Cr Clr Drug Dosing 39.13 mL/min Estimated GFR (MDRD) > 60.0 ml/min Glucose 113 H (60-110) mg/dL Calcium 9.2 (8.8-10.8) mg/dL Total Bilirubin 0.6 (0.1-1.5) mg/dL AST 20 (5-40) IU/L ALT 11 (8-54) IU/L Alkaline Phosphatase 84 (40-150) Creatine Kinase 47 (9-236) IU/L CK-MB (CK-2) 2.2 (0-6.6) ng/ml Troponin I < 0.10 (0.0-0.29) NG/ML B-Natriuretic Peptide 81 (<100) PG/ML Total Protein 6.9 (6.0-8.0) g/dL Albumin 3.8 (3.4-4.8) g/dL Globulin 3.1 (2.0-3.5) g/dL Albumin/Globulin Ratio 1.2 L (1.3-2.8) Amylase 59 (10-90) U/L Lipase 153 H (7-80) U/L Result Diagrams: 03/31/17 13:55 03/31/17 13:55 *Q Meaningful Use (ADM) - VTE *Q VTE Criteria *Q: - Stroke *Q Stroke Criteria *Q: - AMI *Q AMI Criteria *Q: - Problem List (1) Hypoxia SNOMED Code(s): 336821710 ICD Code: R09.02 - HYPOXEMIA Status: Acute Current Visit: Yes (2) COPD exacerbation SNOMED Code(s): 063780178275515 ICD Code: J44.1 - CHRONIC OBSTRUCTIVE PULMONARY DISEASE W (ACUTE) EXACERBATION Status: Acute Current Visit: No (3) Community acquired pneumonia SNOMED Code(s): 751409596 ICD Code: J18.9 - PNEUMONIA, UNSPECIFIED ORGANISM Status: Acute Current Visit: No Problem List Initiated/Reviewed/Updated: Yes Orders Last 24hrs: Active Orders 24 hr Category Date Time Status Admission Diagnosis [ADT] Stat ADT 03/31/17 15:36 Ordered Admission Status [Patient Status] [ADT] Stat ADT 03/31/17 15:37 Active EKG Documentation Completion [RC] STAT Care 03/31/17 13:48 Active RT Aerosol Therapy [RC] ASDIRECTED Care 03/31/17 15:25 Active UA W/MICROSCOPIC [URIN] Stat Lab 03/31/17 13:48 Uncollected Levofloxacin/Dextrose 5%-Water [Levaquin in D5W 750 MG/ Med 03/31/17 16:10 Active 150 ML] 750 mg Premix Bag 1 bag IV ONETIME Sodium Chloride 0.9% [Normal Saline] 1,000 ml Med 03/31/17 14:00 Active IV STAT Medication Orders Sodium Chloride (Normal Saline) 1,000 mls @ 125 mls/hr IV STAT [facility] Last Admin: 03/31/17 14:29 Dose: 125 mls/hr Levofloxacin/Dextrose 750 mg/ (Premix) 150 mls @ 100 mls/hr IV ONETIME ONE Stop: 03/31/17 17:39 Last Admin: 03/31/17 16:23 Dose: 100 mls/hr Assessment/Plan Comment:: March 31, 2017 I reviewed her CXR and note that there is evidence of hyperexpansion and possible LLL infiltrate. Will start levaquin and systemic corticosteroids. See orders. I discussed " code status" with her with granddaughter present. She will be on code level I status . Carl Burrell MD
[2017-03-31] MEDS ORDERED: Temazepam 15 MG Cap PO PRN (16:37)
[2017-03-31] MEDS ORDERED: Ondansetron 4 MG Tab.DIS PO PRN (16:37)
[2017-03-31] MEDS ORDERED: Bisacodyl 5 MG Tab PO PRN (16:37)
[2017-03-31] MEDS ORDERED: Albuterol/Ipratropium 3.0-0.5 MG/3 ML Neb Soln NEB PRN (16:37)
[2017-03-31] MEDS ORDERED: Acetaminophen 325 MG Tab PO PRN (16:37)
[2017-03-31] MEDS: Heparin Sodium 5,000 Units/ML Vial SUBCUT SCH (20:16)
[2017-03-31] MEDS: Docusate Sodium 100 MG Cap PO SCH (20:16)
[2017-04-01] MEDS: Sodium Chloride 0.9% 1,000 ML IV SCH (01:30)
[2017-04-01] MEDS: methylPREDNISolone Sodium Succinate 125 MG/2 ML SDV IVPUSH SCH ×3 (01:30→16:07)
[2017-04-01 06:35] LABS: CHLORIDE,CL 108 mmol/L (98-110); SODIUM,NA 137 mmol/L (136-146)
[2017-04-01] MEDS: Heparin Sodium 5,000 Units/ML Vial SUBCUT SCH ×2 (08:04→22:21)
[2017-04-01] MEDS: Docusate Sodium 100 MG Cap PO SCH ×2 (08:04→22:20)
[2017-04-01] MEDS ORDERED: Enoxaparin 40 MG/0.4 ML Syringe SUBCUT SCH (09:00)
[2017-04-01] MEDS: Albuterol/Ipratropium 3.0-0.5 MG/3 ML Neb Soln NEB SCH ×4 (10:14→22:00)
--- NOTE | 2017-04-01 10:42 | PCM.PN ---
- General Info Date of Service: 04/01/17 Admission Dx/Problem (Free Text): Admission Diagnosis/Problem Admission Diagnosis/Problem pneumonia Subjective Update: Patient has no con newcerns this morning. She continues to be on supplemental oxygen via nasal cannula at 2 L. Patient states that she does use a oxygen mask at home both during the day and at night. She is unsure how much oxygen she is on at home. She notes mildly increased work of breathing. She is tolerating oral intake and voiding appropriately. She is able to get up to the bedside chair. Functional Status: Reports: Tolerating Diet, Ambulating, Urinating - Review of Systems General: Reports: No Symptoms HEENT: Reports: No Symptoms Pulmonary: Reports: Shortness of Breath, Cough Cardiovascular: Reports: No Symptoms Gastrointestinal: Reports: No Symptoms Genitourinary: Reports: No Symptoms Musculoskeletal: Reports: No Symptoms Skin: Reports: No Symptoms Neurological: Reports: No Symptoms Psychiatric: Reports: No Symptoms - Patient Data Vitals - Most Recent: Last Vital Signs Temp 96.4 F 04/01/17 07:56 Pulse 86 04/01/17 07:56 Resp 18 04/01/17 07:56 BP 154/79 H 04/01/17 07:56 Pulse Ox 91 L 04/01/17 07:56 Weight - Most Recent: 117 lb 8 oz I&O - Last 24 Hours: Intake & Output 03/31/17 04/01/17 04/01/17 22:59 06:59 14:59 Intake Total 150 1450 Output Total 925 Balance 150 525 Lab Results Last 24 Hours: Laboratory Results - last 24 hr 04/01/17 04/01/17 04/01/17 Range/Units 05:31 05:31 09:42 WBC 3.41 L (4.0-11.0) K/uL RBC 4.60 (4.30-5.90) M/uL Hgb 12.9 (12.0-16.0) g/dL Hct 40.2 (36.0-46.0) % MCV 87.4 (80.0-98.0) fL MCH 28.0 (27.0-32.0) pg MCHC 32.1 (31.0-37.0) g/dL RDW Std Deviation 48.1 (28.0-62.0) fl RDW Coeff of Kamaljit 15 (11.0-15.0) % Plt Count 239 (150-400) K/uL MPV 10.00 (7.40-12.00) fL Neut % (Auto) 88.8 H (48.0-80.0) % Lymph % (Auto) 10.3 L (16.0-40.0) % [place] % (Auto) 0.9 (0.0-15.0) % Eos % (Auto) 0.0 (0.0-7.0) % Baso % (Auto) 0.0 (0.0-1.5) % Neut # (Auto) 3.0 (1.4-5.7) K/uL Lymph # (Auto) 0.4 L (0.6-2.4) K/uL [place] # (Auto) 0.0 (0.0-0.8) K/uL Eos # (Auto) 0.0 (0.0-0.7) K/uL Baso # (Auto) 0.0 (0.0-0.1) K/uL Nucleated RBC % 0.0 /100WBC Nucleated RBCs # 0 K/uL Sodium 137 (136-146) mmol/L Potassium 4.6 (3.5-5.1) mmol/L Chloride 108 (98-110) mmol/L Carbon Dioxide 21 (21-31) mmol/L BUN 10 (6.0-23.0) mg/dL Creatinine 0.6 (0.6-1.5) mg/dL Est Cr Clr Drug Dosing 45.66 mL/min Estimated GFR (MDRD) > 60.0 ml/min Glucose 132 H (60-110) mg/dL Calcium 8.6 L (8.8-10.8) mg/dL Magnesium 1.8 (1.5-2.3) mEq/L Urine Color YELLOW Urine Appearance CLEAR Urine pH 5.5 (5.0-8.0) Ur Specific [place] 1.010 (1.001-1.035) Urine Protein NEGATIVE (NEGATIVE) mg/dL Urine Glucose (UA) NEGATIVE (NEGATIVE) mg/dL Urine Ketones NEGATIVE (NEGATIVE) mg/dL Urine Occult Blood NEGATIVE (NEGATIVE) Urine Nitrite NEGATIVE (NEGATIVE) Urine Bilirubin NEGATIVE (NEGATIVE) Urine Urobilinogen 0.2 (<2.0) EU/dL Ur Leukocyte Esterase NEGATIVE (NEGATIVE) Urine RBC 0-1 (0-2/HPF) Urine WBC 0-1 (0-5/HPF) Ur Epithelial Cells RARE (NONE-FEW) Urine Bacteria RARE (NEGATIVE) Med Orders - Current: Current Medications Acetaminophen (Tylenol) 650 mg PO Q4H PRN PRN Reason: Pain (Mild 1-3)/fever Albuterol/Ipratropium (Duoneb 3.0-0.5 Mg/3 Ml) 3 ml NEB Q4HRRT [facility] Last Admin: 04/01/17 10:14 Dose: 3 ml Bisacodyl (Dulcolax) 5 mg PO DAILY PRN PRN Reason: Constipation Docusate Sodium (Colace) 100 mg PO BID [facility] Last Admin: 04/01/17 08:04 Dose: 100 mg Heparin Sodium (Porcine) (Heparin Sodium) 5,000 units SUBCUT Q12H [facility] Last Admin: 04/01/17 08:04 Dose: 5,000 units Levofloxacin/Dextrose 750 mg/ (Premix) 150 mls @ 100 mls/hr IV Q48H [facility] Methylprednisolone Sodium Succinate (Solu-Medrol) 125 mg IVPUSH Q8H [facility] Last Admin: 04/01/17 08:04 Dose: 125 mg Ondansetron HCl (Zofran Odt) 4 mg PO Q4H PRN PRN Reason: nausea, able to take PO Temazepam (Restoril) 15 mg PO BEDTIME PRN PRN Reason: Sleep Discontinued Medications Albuterol/Ipratropium (Duoneb 3.0-0.5 Mg/3 Ml) 3 ml NEB ONETIME ONE Stop: 03/31/17 15:26 Last Admin: 03/31/17 15:31 Dose: 3 ml Albuterol/Ipratropium (Duoneb 3.0-0.5 Mg/3 Ml) 3 ml NEB Q4HRRT PRN PRN Reason: Shortness Of Breath/wheezing Last Admin: 04/01/17 05:46 Dose: 3 ml Sodium Chloride (Normal Saline) 1,000 mls @ 125 mls/hr IV STAT [facility] Last Admin: 04/01/17 01:30 Dose: 125 mls/hr Levofloxacin/Dextrose 750 mg/ (Premix) 150 mls @ 100 mls/hr IV ONETIME ONE Stop: 03/31/17 17:39 Last Admin: 03/31/17 16:23 Dose: 100 mls/hr Methylprednisolone Sodium Succinate (Solu-Medrol) 125 mg IVPUSH ONETIME ONE Stop: 03/31/17 13:54 Last Admin: 03/31/17 14:31 Dose: 125 mg - Exam Quality Assessment: Supplemental Oxygen (93% on 2 L nasal cannula.), DVT Prophylaxis (SCDs, heparin) General: Alert, Oriented, Cooperative, No Acute Distress HEENT: Mucous Membr. Moist/[place] Neck: Supple Lungs: Normal Respiratory Effort, Wheezing (Lower lung quintanilla bilaterally.) Cardiovascular: Regular Rate, Regular Rhythm GI/Abdominal Exam: Normal Bowel Sounds, Soft, Non-Tender, No Organomegaly, No Distention, No Abnormal Bruit, No Mass Extremities: Normal Inspection, Normal Range of Motion, Non-Tender, No Pedal Edema, Normal Capillary Refill Peripheral Pulses: 2+: Radial (L), Radial (R), Posterior Tibial (L), Posterior Tibial (R) Skin: Warm, Dry, Intact Neurological: No New Focal Deficit Psy/Mental Status: Alert, Normal Affect, Normal Mood - Problem List & Annotations (1) COPD exacerbation SNOMED Code(s): 420677944101232 Code(s): J44.1 - CHRONIC OBSTRUCTIVE PULMONARY DISEASE W (ACUTE) EXACERBATION Status: Acute Current Visit: No (2) Community acquired pneumonia SNOMED Code(s): 321467471 Code(s): J18.9 - PNEUMONIA, UNSPECIFIED ORGANISM Status: Acute Current Visit: No - Problem List Review Problem List Initiated/Reviewed/Updated: Yes - My Orders Last 24 Hours: My Active Orders 04/01/17 10:00 Albuterol/Ipratropium [DuoNeb 3.0-0.5 MG/3 ML] 3 ml NEB Q4HRRT - Plan Plan:: 89-year-old female with pneumonia and possible COPD exacerbation. #1. Community-acquired pneumonia with COPD exacerbation: -Continue Levaquin and Solu-Medrol. White blood cell count is normal. -DuoNeb nebs will be switched to scheduled instead of when necessary. Patient still on 2 L nasal cannula. She does use an oxygen mask at home intermittently during the day and night. -Patient is tolerating oral intake so IV fluids will be discontinued. DVT prophylaxis: Heparin, SCDs. Disposition: 1-2 days pending improvement.
[2017-04-02] MEDS: Albuterol/Ipratropium 3.0-0.5 MG/3 ML Neb Soln NEB SCH ×6 (01:30→21:36)
[2017-04-02] MEDS: methylPREDNISolone Sodium Succinate 125 MG/2 ML SDV IVPUSH SCH ×3 (01:30→21:11)
[2017-04-02 06:03] LABS: CHLORIDE,CL 107 mmol/L (98-110); SODIUM,NA 138 mmol/L (136-146)
[2017-04-02] MEDS: Heparin Sodium 5,000 Units/ML Vial SUBCUT SCH ×2 (08:01→21:11)
[2017-04-02] MEDS: Docusate Sodium 100 MG Cap PO SCH ×2 (08:01→21:11)
--- NOTE | 2017-04-02 11:04 | PCM.PN ---
- General Info Date of Service: 04/02/17 Admission Dx/Problem (Free Text): Admission Diagnosis/Problem Admission Diagnosis/Problem pneumonia Subjective Update: Patient has no new concerns this morning. She reports that she is breathing much easier this morning. She is tolerating oral intake and voiding appropriately. She has been afebrile. A granddaughter is at the patient's bedside and has concerns about the patient going home with oxygen and having a wood burning stove at home. I did speak with the patient's daughter who lives in [place] and is going to try to arrange care for the patient when she is discharged. Functional Status: Reports: Tolerating Diet, Ambulating, Urinating - Review of Systems General: Reports: No Symptoms HEENT: Reports: No Symptoms Pulmonary: Reports: Shortness of Breath (Improving) Cardiovascular: Reports: No Symptoms Gastrointestinal: Reports: No Symptoms Genitourinary: Reports: No Symptoms Musculoskeletal: Reports: No Symptoms Skin: Reports: No Symptoms Neurological: Reports: No Symptoms Psychiatric: Reports: No Symptoms - Patient Data Vitals - Most Recent: Last Vital Signs Temp 98.2 F 04/02/17 08:00 Pulse 85 04/02/17 08:00 Resp 20 04/02/17 08:00 BP 130/65 04/02/17 08:00 Pulse Ox 95 04/02/17 08:00 Weight - Most Recent: 117 lb 8 oz I&O - Last 24 Hours: Intake & Output 04/01/17 04/02/17 04/02/17 22:59 06:59 14:59 Intake Total 450 900 Output Total 600 700 Balance -150 200 Lab Results Last 24 Hours: Laboratory Results - last 24 hr 04/02/17 04/02/17 Range/Units 04:42 04:42 WBC 7.64 (4.0-11.0) K/uL RBC 4.34 (4.30-5.90) M/uL Hgb 12.1 (12.0-16.0) g/dL Hct 37.7 (36.0-46.0) % MCV 86.9 (80.0-98.0) fL MCH 27.9 (27.0-32.0) pg MCHC 32.1 (31.0-37.0) g/dL RDW Std Deviation 48.3 (28.0-62.0) fl RDW Coeff of Kamaljit 15 (11.0-15.0) % Plt Count 237 (150-400) K/uL MPV 10.30 (7.40-12.00) fL Neut % (Auto) 90.1 H (48.0-80.0) % Lymph % (Auto) 4.7 L (16.0-40.0) % [place] % (Auto) 5.2 (0.0-15.0) % Eos % (Auto) 0.0 (0.0-7.0) % Baso % (Auto) 0.0 (0.0-1.5) % Neut # (Auto) 6.9 H (1.4-5.7) K/uL Lymph # (Auto) 0.4 L (0.6-2.4) K/uL [place] # (Auto) 0.4 (0.0-0.8) K/uL Eos # (Auto) 0.0 (0.0-0.7) K/uL Baso # (Auto) 0.0 (0.0-0.1) K/uL Nucleated RBC % 0.0 /100WBC Nucleated RBCs # 0 K/uL Sodium 138 (136-146) mmol/L Potassium 4.6 (3.5-5.1) mmol/L Chloride 107 (98-110) mmol/L Carbon Dioxide 24 (21-31) mmol/L BUN 14 (6.0-23.0) mg/dL Creatinine 0.6 (0.6-1.5) mg/dL Est Cr Clr Drug Dosing 45.66 mL/min Estimated GFR (MDRD) > 60.0 ml/min Glucose 139 H (60-110) mg/dL Calcium 8.8 (8.8-10.8) mg/dL Med Orders - Current: Current Medications Acetaminophen (Tylenol) 650 mg PO Q4H PRN PRN Reason: Pain (Mild 1-3)/fever Albuterol/Ipratropium (Duoneb 3.0-0.5 Mg/3 Ml) 3 ml NEB Q4HRRT [facility] Last Admin: 04/02/17 10:02 Dose: 3 ml Bisacodyl (Dulcolax) 5 mg PO DAILY PRN PRN Reason: Constipation Docusate Sodium (Colace) 100 mg PO BID [facility] Last Admin: 04/02/17 08:01 Dose: 100 mg Heparin Sodium (Porcine) (Heparin Sodium) 5,000 units SUBCUT Q12H [facility] Last Admin: 04/02/17 08:01 Dose: 5,000 units Levofloxacin (Levaquin) 750 mg PO Q48H [facility] Methylprednisolone Sodium Succinate (Solu-Medrol) 125 mg IVPUSH BID [facility] Ondansetron HCl (Zofran Odt) 4 mg PO Q4H PRN PRN Reason: nausea, able to take PO Temazepam (Restoril) 15 mg PO BEDTIME PRN PRN Reason: Sleep Discontinued Medications Albuterol/Ipratropium (Duoneb 3.0-0.5 Mg/3 Ml) 3 ml NEB ONETIME ONE Stop: 03/31/17 15:26 Last Admin: 03/31/17 15:31 Dose: 3 ml Albuterol/Ipratropium (Duoneb 3.0-0.5 Mg/3 Ml) 3 ml NEB Q4HRRT PRN PRN Reason: Shortness Of Breath/wheezing Last Admin: 04/01/17 05:46 Dose: 3 ml Sodium Chloride (Normal Saline) 1,000 mls @ 125 mls/hr IV STAT [facility] Last Admin: 04/01/17 01:30 Dose: 125 mls/hr Levofloxacin/Dextrose 750 mg/ (Premix) 150 mls @ 100 mls/hr IV ONETIME ONE Stop: 03/31/17 17:39 Last Admin: 03/31/17 16:23 Dose: 100 mls/hr Levofloxacin/Dextrose 750 mg/ (Premix) 150 mls @ 100 mls/hr IV Q48H [facility] Methylprednisolone Sodium Succinate (Solu-Medrol) 125 mg IVPUSH ONETIME ONE Stop: 03/31/17 13:54 Last Admin: 03/31/17 14:31 Dose: 125 mg Methylprednisolone Sodium Succinate (Solu-Medrol) 125 mg IVPUSH Q8H [facility] Last Admin: 04/02/17 08:02 Dose: 125 mg - Exam Quality Assessment: Supplemental Oxygen (2 L nasal cannula.), DVT Prophylaxis ( Heparin and SCDs.) General: Alert, Oriented, Cooperative, No Acute Distress Lungs: Normal Respiratory Effort, Wheezing Cardiovascular: Regular Rate, Regular Rhythm GI/Abdominal Exam: Normal Bowel Sounds, Soft, Non-Tender, No Organomegaly, No Distention, No Abnormal Bruit, No Mass Extremities: Normal Inspection, Normal Range of Motion, Non-Tender, No Pedal Edema, Normal Capillary Refill Peripheral Pulses: 2+: Radial (L), Radial (R), Posterior Tibial (L), Posterior Tibial (R) Skin: Warm, Dry, Intact Neurological: No New Focal Deficit Psy/Mental Status: Alert, Normal Affect, Normal Mood - Problem List & Annotations (1) COPD exacerbation SNOMED Code(s): 003449266777968 Code(s): J44.1 - CHRONIC OBSTRUCTIVE PULMONARY DISEASE W (ACUTE) EXACERBATION Status: Acute Current Visit: No (2) Community acquired pneumonia SNOMED Code(s): 395582815 Code(s): J18.9 - PNEUMONIA, UNSPECIFIED ORGANISM Status: Acute Current Visit: No - Problem List Review Problem List Initiated/Reviewed/Updated: Yes - My Orders Last 24 Hours: My Active Orders 04/01/17 10:00 Albuterol/Ipratropium [DuoNeb 3.0-0.5 MG/3 ML] 3 ml NEB Q4HRRT - Plan Plan:: 89-year-old female with pneumonia and possible COPD exacerbation. #1. Community-acquired pneumonia with COPD exacerbation: -Switched to by mouth Levaquin. Change IV Solu-Medrol from every 8 hours to twice a day. -Continue scheduled DuoNeb's. Patient may need to go home on oxygen. She does not use oxygen at home. I did speak with the daughter of the patient who lives in [place]. She is going to try to arrange care for the patient after she is discharged. I will speak with Frank from social work and see if the patient is a candidate for home health. DVT prophylaxis: Heparin, SCDs. Disposition: Probable discharge tomorrow.
[2017-04-02] MEDS ORDERED: Levofloxacin/Dextrose 5%-Water 750 MG in Premix Bag 1 BAG IV SCH (16:00)
[2017-04-02] MEDS ORDERED: Levofloxacin 500 MG Tab PO SCH (16:00)
[2017-04-03] MEDS: Albuterol/Ipratropium 3.0-0.5 MG/3 ML Neb Soln NEB SCH ×3 (02:34→09:53)
[2017-04-03 06:05] LABS: CHLORIDE,CL 105 mmol/L (98-110); SODIUM,NA 137 mmol/L (136-146)
[2017-04-03] MEDS: methylPREDNISolone Sodium Succinate 125 MG/2 ML SDV IVPUSH SCH (08:41)
[2017-04-03] MEDS: Docusate Sodium 100 MG Cap PO SCH (08:41)
[2017-04-03] MEDS: Heparin Sodium 5,000 Units/ML Vial SUBCUT SCH (08:41)
--- NOTE | 2017-04-03 10:19 | PCM.DCSUM1 ---
Discharge Summary - Hospital Course Free Text/Narrative:: Admission diagnosis: #1. Hypoxia secondary to pneumonia and COPD exacerbation Discharge diagnoses: #2. Hypoxia secondary to pneumonia and COPD exacerbation, improved. 89-year-old female admitted with hypoxia secondary to left lower lobe pneumonia as evidenced on chest x-ray and COPD exacerbation. Patient was placed on IV Levaquin and switched over to oral Levaquin at the time of discharge. She was also given Solu-Medrol throughout admission and discharged home on a prednisone taper. Patient is not on oxygen at home but had her oxygen saturation maintained above 94% while on 2 L nasal cannula here in the hospital. Work of breathing was improved with supplemental O2. He was noted by nursing that the patient's oxygen saturation on room air at rest was 86%. With 2 L nasal cannula the patient was able to maintain her oxygen saturation greater than 94%. Patient also received scheduled DuoNeb treatments while admitted. With these treatments the patient's work of breathing improved and she was able to ambulate with supplemental O2. At the time of discharge, the patient was requiring 2 L via nasal cannula. She was tolerating oral intake, voiding appropriately and ambulating without assistance. - Discharge Data Discharge Date: 04/03/17 Discharge Disposition: Home, Self-Care 01 Condition: Fair - Discharge Diagnosis/Problem(s) (1) COPD exacerbation SNOMED Code(s): 291275855448034 ICD Code: J44.1 - CHRONIC OBSTRUCTIVE PULMONARY DISEASE W (ACUTE) EXACERBATION Status: Acute Current Visit: No (2) Community acquired pneumonia SNOMED Code(s): 142767107 ICD Code: J18.9 - PNEUMONIA, UNSPECIFIED ORGANISM Status: Acute Current Visit: Yes - Patient Instructions Diet: Usual Diet as Tolerated Activity: As Tolerated Driving: Do Not Drive Showering/Bathing: May Shower Notify Provider of: Fever, Increased Pain, Nausea and/or Vomiting Other/Special Instructions: recommend replacing the wood burning stove. No smoking inside the house - Discharge Plan Prescriptions/Med Rec: Levofloxacin [Levaquin] 750 mg PO Q48H #7 tablet Prednisone [IJD: Prednisone] 10 mg PO DAILY #28 tab Home Medications: Home Meds Albuterol/Ipratropium [DuoNeb 3.0-0.5 MG/3 ML] 3 ml NEB Q4HRRT PRN #1 box [Rx] Levofloxacin [Levaquin] 750 mg PO Q48H #7 tablet 04/03/17 [Rx] Prednisone [IJD: Prednisone] 10 mg PO DAILY #28 tab 04/03/17 [Rx] Patient Handouts: Hypoxemia, Levofloxacin tablets, Prednisone tablets, Community-Acquired Pneumonia, Adult, [id number] Referrals: Tramaine Paez [Resident] - 04/13/17 9:30 am - Discharge Summary/Plan Comment DC Time >30 min.: No Discharge Summary/Plan Comment: Admission diagnosis: #1. Hypoxia secondary to pneumonia and COPD exacerbation Discharge diagnoses: #2. Hypoxia secondary to pneumonia and COPD exacerbation, improved. 89-year-old female admitted with hypoxia secondary to left lower lobe pneumonia as evidenced on chest x-ray and COPD exacerbation. Patient was placed on IV Levaquin and switched over to oral Levaquin at the time of discharge. She was also given Solu-Medrol throughout admission and discharged home on a prednisone taper. Patient is not on oxygen at home but had her oxygen saturation maintained above 94% while on 2 L nasal cannula here in the hospital. Work of breathing was improved with supplemental O2. He was noted by nursing that the patient's oxygen saturation on room air at rest was 86%. With 2 L nasal cannula the patient was able to maintain her oxygen saturation greater than 94%. Patient also received scheduled DuoNeb treatments while admitted. With these treatments the patient's work of breathing improved and she was able to ambulate with supplemental O2. At the time of discharge, the patient was requiring 2 L via nasal cannula. She was tolerating oral intake, voiding appropriately and ambulating without assistance. Discharge plan: #1. Patient will be sent home on a prednisone taper. #2. Patient will be sent home on Levaquin 750 mg 1 tab every 48 hours, 7 tabs, 0 refills. This is necessary given that she was diagnosed with community- acquired pneumonia. #3. Patient will be sent home with home oxygen given that her oxygen saturation dropped to 86% on room air at rest. Patient will need the supplemental oxygen long after she finishes her oral course of antibiotics. #4. Recommendations were to replace the wood burning stove in her home and also to stop any cigarette use in the home. #5. Patient will follow-up with Dr. Paez. - Patient Data Vitals - Most Recent: Last Vital Signs Temp 98.2 F 04/03/17 08:00 Pulse 137 H 04/03/17 08:00 Resp 20 04/03/17 08:00 BP 120/67 04/03/17 08:00 Pulse Ox 91 L 04/03/17 08:00 Weight - Most Recent: 117 lb 8 oz I&O - Last 24 hours: Intake & Output 04/02/17 04/03/17 04/03/17 22:59 06:59 14:59 Intake Total 550 200 Output Total 500 450 Balance 50 -250 Lab Results - Last 24 hrs: Laboratory Results - last 24 hr 04/03/17 04/03/17 Range/Units 05:23 05:23 WBC 7.32 (4.0-11.0) K/uL RBC 4.30 (4.30-5.90) M/uL Hgb 12.1 (12.0-16.0) g/dL Hct 37.5 (36.0-46.0) % MCV 87.2 (80.0-98.0) fL MCH 28.1 (27.0-32.0) pg MCHC 32.3 (31.0-37.0) g/dL RDW Std Deviation 48.6 (28.0-62.0) fl RDW Coeff of Kamaljit 15 (11.0-15.0) % Plt Count 248 (150-400) K/uL MPV 10.10 (7.40-12.00) fL Neut % (Auto) 91.0 H (48.0-80.0) % Lymph % (Auto) 4.4 L (16.0-40.0) % Harnett % (Auto) 4.6 (0.0-15.0) % Eos % (Auto) 0.0 (0.0-7.0) % Baso % (Auto) 0.0 (0.0-1.5) % Neut # (Auto) 6.7 H (1.4-5.7) K/uL Lymph # (Auto) 0.3 L (0.6-2.4) K/uL Harnett # (Auto) 0.3 (0.0-0.8) K/uL Eos # (Auto) 0.0 (0.0-0.7) K/uL Baso # (Auto) 0.0 (0.0-0.1) K/uL Nucleated RBC % 0.0 /100WBC Nucleated RBCs # 0 K/uL Sodium 137 (136-146) mmol/L Potassium 4.3 (3.5-5.1) mmol/L Chloride 105 (98-110) mmol/L Carbon Dioxide 24 (21-31) mmol/L BUN 18 (6.0-23.0) mg/dL Creatinine 0.6 (0.6-1.5) mg/dL Est Cr Clr Drug Dosing 45.66 mL/min Estimated GFR (MDRD) > 60.0 ml/min Glucose 150 H (60-110) mg/dL Calcium 8.4 L (8.8-10.8) mg/dL Med Orders - Current: Current Medications Acetaminophen (Tylenol) 650 mg PO Q4H PRN PRN Reason: Pain (Mild 1-3)/fever Albuterol/Ipratropium (Duoneb 3.0-0.5 Mg/3 Ml) 3 ml NEB Q4HRRT [facility] Last Admin: 04/03/17 09:53 Dose: 3 ml Bisacodyl (Dulcolax) 5 mg PO DAILY PRN PRN Reason: Constipation Docusate Sodium (Colace) 100 mg PO BID [facility] Last Admin: 04/03/17 08:41 Dose: 100 mg Heparin Sodium (Porcine) (Heparin Sodium) 5,000 units SUBCUT Q12H [facility] Last Admin: 04/03/17 08:41 Dose: 5,000 units Levofloxacin (Levaquin) 750 mg PO Q48H [facility] Last Admin: 04/02/17 15:28 Dose: 750 mg Methylprednisolone Sodium Succinate (Solu-Medrol) 125 mg IVPUSH BID [facility] Last Admin: 04/03/17 08:41 Dose: 125 mg Ondansetron HCl (Zofran Odt) 4 mg PO Q4H PRN PRN Reason: nausea, able to take PO Temazepam (Restoril) 15 mg PO BEDTIME PRN PRN Reason: Sleep Discontinued Medications Albuterol/Ipratropium (Duoneb 3.0-0.5 Mg/3 Ml) 3 ml NEB ONETIME ONE Stop: 03/31/17 15:26 Last Admin: 03/31/17 15:31 Dose: 3 ml Albuterol/Ipratropium (Duoneb 3.0-0.5 Mg/3 Ml) 3 ml NEB Q4HRRT PRN PRN Reason: Shortness Of Breath/wheezing Last Admin: 04/01/17 05:46 Dose: 3 ml Sodium Chloride (Normal Saline) 1,000 mls @ 125 mls/hr IV STAT ASIYA Last Admin: 04/01/17 01:30 Dose: 125 mls/hr Levofloxacin/Dextrose 750 mg/ (Premix) 150 mls @ 100 mls/hr IV ONETIME ONE Stop: 03/31/17 17:39 Last Admin: 03/31/17 16:23 Dose: 100 mls/hr Levofloxacin/Dextrose 750 mg/ (Premix) 150 mls @ 100 mls/hr IV Q48H [facility] Methylprednisolone Sodium Succinate (Solu-Medrol) 125 mg IVPUSH ONETIME ONE Stop: 03/31/17 13:54 Last Admin: 03/31/17 14:31 Dose: 125 mg Methylprednisolone Sodium Succinate (Solu-Medrol) 125 mg IVPUSH Q8H [facility] Last Admin: 04/02/17 08:02 Dose: 125 mg *Q Meaningful Use (DIS) - VTE *Q VTE Criteria *Q: - Stroke *Q Stroke Criteria *Q: - AMI *Q AMI Criteria *Q:
[2017-04-03 13:06] VITALS: BP 103/63
== END 2017-04-03 14:00 | disposition home health service (06) ==
LOC: MW.ED 13:42 → MW.MS 15:37 → UNDOADMOB 15:37
PROVIDERS: ADMIT Family Medicine; ATTEND Family Medicine
DX: J44.1 Chronic obstructive pulmonary disease with (acute) exacerbation (principal); J44.0 Chronic obstructive pulmonary disease with (acute) lower respiratory infection; J18.9 Pneumonia, unspecified organism; R09.02 Hypoxemia; Z79.899 Other long term (current) drug therapy; Z98.49 Cataract extraction status, unspecified eye; Z96.659 Presence of unspecified artificial knee joint
CPT/HCPCS: 36415; 71010; 80048; 80053; 81001; 82150; 82550; 82553; 83690; 83735; 83880; 84484; 85025; 93005; 94640; 96361; 96365; 96372; 96375; 96376; 99285; A9270; G0378; J1644; J1956; J2930; J7040; 96374; 99283

== ENCOUNTER 2017-04-05 15:28 | Inpatient (IN) | payer MEDICARE, OTHER ==
[2017-04-05] MEDS ORDERED: Sodium Chloride 0.9% 1,000 ML IV ONE ×2 (15:29→16:16)
--- NOTE | 2017-04-05 15:36 | EDM.PDOC ---
ED HPI GENERAL MEDICAL PROBLEM - General Stated Complaint: SOB Time Seen by Provider: 04/05/17 15:28 Source of Information: Reports: Patient History Limitations: Reports: No Limitations - History of Present Illness INITIAL COMMENTS - FREE TEXT/NARRATIVE: HISTORY AND PHYSICAL: History of present illness: Patient is a 89-year-old female who presents to the emergency room today with complaints of shortness of breath. She states she woke up this morning and was letting the dog out to use the bathroom when her family member started yelling at her -she reports she started to have some midsternal chest pain that radiated across her chest. She went into the kitchen and sat down which resolved her chest pain but she had increased shortness of breath. A home health nurse came to visit the patient this afternoon and told her of this episode. She encouraged her to come to the emergency room for evaluation. Patient has a long-standing history of shortness of breath with her COPD. She is homebound and uses home oxygen. Upon arriving to the emergency room the patient reports that she does not have chest pain currently. She states "I told my family would be fine but they made me come in". Daughter at bedside reports that the patient had a low pulse rate which she checked with a finger O2 monitor. Was recently hospitalized on 03/31/2017 for dyspnea and COPD exacerbation. At that time she was placed on Levaquin and systemic steroids. She was discharged on 04/02/2017 and given a prednisone taper and oral Levaquin. Review of systems: As per history of present illness and below otherwise all systems reviewed and negative. Past medical history: As per history of present illness and as reviewed below otherwise noncontributory. Surgical history: As per history of present illness and as reviewed below otherwise noncontributory. Social history: No reported history of drug or alcohol abuse. Family history: As per history of present illness and as reviewed below otherwise noncontributory. Physical exam: HEENT: Atraumatic, normocephalic, pupils reactive, negative for conjunctival pallor or scleral icterus, mucous membranes moist, throat clear, neck supple, nontender, trachea midline. Lungs: Clear to auscultation, breath sounds equal bilaterally, chest nontender. Heart: Tachycardic Abdomen: Soft, nondistended, nontender. Negative for masses or hepatosplenomegaly. Negative for costovertebral tenderness. Pelvis: Stable nontender. Genitourinary: Deferred. Rectal: Deferred. Extremities: Atraumatic, negative for cords or calf pain. Neurovascular unremarkable. Neuro: Awake, alert, oriented. Cranial nerves II through XII unremarkable. Cerebellum unremarkable. Motor and sensory unremarkable throughout. Exam nonfocal. 1550- EKG shows SVT with a heart rate in the 140s to 150s. This was reviewed with Dr. Quinones. Adenosine is ordered. 1603 -First dose of adenosine was given. Patient's heart rate did go down to the high 90s for approximately 30 seconds and then went back up to the 150s. Patient tolerated well. 1609- Second dose of adenosine was given. Patient heart rate went down to 90s for approximately 30 seconds and then went back up to 150s. Dr. Quinones was at bedside for this, as he is now involved in her care. 1628- She remains in SVT at this time, she appears to her heart rate and attempt to convert but then spikes back to 150s. Blood pressure is in the 90s over 50s at this time. 1 L of fluids is in. Second liter fluids has been started. 1634- Current BP 102/64, HR 140's. We discussed with the family members the possible need for cardioversion. Patient is alert and oriented. She states that she feels "fine" but still has some mild shortness of breath. 1639 - IV push Cardizem was given with the heart rate now down to the 80s to 90s. 1645- Blood pressure has dropped to 81/51; NS running at this time. Repeat EKG ordered. Tennille was paged. 1700-Blood pressure is 100/55, heart rate of 76 of a sinus rhythm. Cardizem drip on HOLD at this time. Dr. Null has agreed to accept this patient at this time. She will be an inpatient on ICU. Patient is aware of admission and is agreeable to stay. Family at bedside is aware as well. Patient states that she "feels good" and is not complaining of any dyspnea or chest pain. Diagnostics: CBC, CMP, troponin, EKG, one view chest x-ray, phototypesetting equipment monitor Therapeutics: IV fluid, adenosine x 2, Cardizem push, Cardizem drip Impression: Dyspnea SVT Plan: ICU admission Definitive disposition and diagnosis as appropriate pending reevaluation and review of above. Onset: Today Duration: Hour(s): Location: Reports: Chest Associated Symptoms: Reports: Chest Pain (Resolved), Shortness of Breath. Denies: Cough, Diaphoresis, Fever/Chills, Headaches, Nausea/Vomiting - Related Data Allergies Allergy/AdvReac Type Severity Reaction Status Date / Time No Known Allergies Allergy Verified 03/31/17 13:54 Home Meds: Home Meds Albuterol/Ipratropium [DuoNeb 3.0-0.5 MG/3 ML] 3 ml NEB Q4HRRT PRN #1 box [Rx] Levofloxacin [Levaquin] 750 mg PO Q48H #7 tablet 04/03/17 [Rx] Prednisone [IJD: Prednisone] 10 mg PO DAILY #28 tab 04/03/17 [Rx] Past Medical History - Past Health History Medical/Surgical History: Denies Medical/Surgical History HEENT History: Reports: Cataract, Hard of Hearing Cardiovascular History: Reports: None Respiratory History: Reports: SOB Gastrointestinal History: Reports: None Genitourinary History: Reports: None [employer] History: Reports: None Musculoskeletal History: Reports: Other (See Below) 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 Neurological History: Reports: None Psychiatric History: Reports: None Endocrine/Metabolic History: Reports: None Hematologic History: Reports: None Immunologic History: Reports: None Oncologic (Cancer) History: Reports: None Dermatologic History: Reports: None - Infectious Disease History Infectious Disease History: Reports: Chicken Pox - Past Surgical History Head Surgeries/Procedures: Reports: None HEENT Surgical History: Reports: Cataract Surgery Cardiovascular Surgical History: Reports: None Respiratory Surgical History: Reports: None GI Surgical History: Reports: None Endocrine Surgical History: Reports: None Neurological Surgical History: Reports: None Musculoskeletal Surgical History: Reports: Knee Replacement Oncologic Surgical History: Reports: None Dermatological Surgical History: Reports: None Social & Family History - Family History Family Medical History: Noncontributory HEENT: Reports: None Cardiac: Reports: None Respiratory: Reports: None GI: Reports: None : Reports: None OBGYN: Reports: None Musculoskeletal: Reports: None Neurological: Reports: None Psychiatric: Reports: None Endocrine/Metabolic: Reports: None Immunologic: Reports: None Dermatologic: Reports: None Oncologic: Reports: None - Tobacco Use Smoking Status *Q: Never Smoker Second Hand Smoke Exposure: No - Caffeine Use Caffeine Use: Reports: Coffee - Alcohol Use Days Per Week of Alcohol Use: 1 Number of Drinks Per Day: 1 Total Drinks Per Week: 1 - Recreational Drug Use Recreational Drug Use: No - Living Situation & Occupation Living situation: Reports: Alone Occupation: Retired ED ROS GENERAL - Review of Systems Review Of Systems: ROS reveals no pertinent complaints other than HPI. ED EXAM, GENERAL - Physical Exam Exam: See Below (See dictation) Course - Vital Signs Last Recorded V/S: Last Vital Signs Temp 36.1 C 04/05/17 15:30 Pulse 81 04/05/17 16:45 Resp 16 04/05/17 16:45 BP 81/51 L 04/05/17 16:45 Pulse Ox 93 L 04/05/17 16:45 - Orders/Labs/Meds Orders: Active Orders 24 hr Category Date Time Status Admission Status [Patient Status] [ADT] Stat ADT 04/05/17 16:58 Active Cardiac Monitoring [RC] . DIRECTED Care 04/05/17 15:29 Active EKG 12 Lead [EKG Documentation Completion] [RC] STAT Care 04/05/17 16:48 Active EKG Documentation Completion [RC] STAT Care 04/05/17 15:29 Active EKG Documentation Completion [RC] STAT Care 04/05/17 16:16 Active RT Aerosol Therapy [RC] ASDIRECTED Care 04/05/17 15:40 Active Chest 1V Frontal [CR] Stat Exams 04/05/17 15:29 Taken Diltiazem [Cardizem] 100 mg Med 04/05/17 16:15 Active Sodium Chloride 0.9% [Normal Saline] 100 ml IV TITRATE Sodium Chloride 0.9% [Normal Saline] 1,000 ml Med 04/05/17 16:16 Active IV STAT Medication Orders Diltiazem HCl 100 mg/ Sodium (Chloride) 100 mls @ 10 mls/hr IV TITRATE ASIYA; 10 MG/HR PRN Reason: Protocol Sodium Chloride (Normal Saline) 1,000 mls @ 125 mls/hr IV STAT ONE Stop: 04/06/17 00:15 Last Infusion: 04/05/17 16:53 Dose: 125 mls/hr Infusion: 04/05/17 16:45 Dose: 999 mls/hr Admin: 04/05/17 16:23 Dose: 125 mls/hr Labs: Laboratory Tests 04/05/17 04/05/17 Range/Units 15:39 15:39 WBC 7.83 (4.0-11.0) K/uL RBC 4.59 (4.30-5.90) M/uL Hgb 13.1 (12.0-16.0) g/dL Hct 39.3 (36.0-46.0) % MCV 85.6 (80.0-98.0) fL MCH 28.5 (27.0-32.0) pg MCHC 33.3 (31.0-37.0) g/dL RDW Std Deviation 47.5 (28.0-62.0) fl RDW Coeff of Kamaljit 15 (11.0-15.0) % Plt Count 233 (150-400) K/uL MPV 9.60 (7.40-12.00) fL Add Manual Diff YES Neutrophils % (Manual) 72 (48.0-80.0) % Lymphocytes % (Manual) 27 (16.0-40.0) % Immat Monocytes % (Man) Monocytes % (Manual) 1 (0.0-15.0) % Nucleated RBC % 0.0 /100WBC Absolute Seg Neuts 5.6 (1.4-5.7) Lymphocytes # (Manual) 2.1 (0.6-2.4) Monocytes # (Manual) 0.1 (0.0-0.8) Nucleated RBCs # 0 K/uL Sodium 139 (136-146) mmol/L Potassium 3.5 (3.5-5.1) mmol/L Chloride 103 (98-110) mmol/L Carbon Dioxide 26 (21-31) mmol/L BUN 21 (6.0-23.0) mg/dL Creatinine 0.7 (0.6-1.5) mg/dL Est Cr Clr Drug Dosing 41.11 mL/min Estimated GFR (MDRD) > 60.0 ml/min Glucose 129 H (60-110) mg/dL Calcium 8.6 L (8.8-10.8) mg/dL Total Bilirubin 0.5 (0.1-1.5) mg/dL AST 13 (5-40) IU/L ALT 10 (8-54) IU/L Alkaline Phosphatase 68 (40-150) Troponin I < 0.10 (0.0-0.29) NG/ML Total Protein 5.9 L (6.0-8.0) g/dL Albumin 3.3 L (3.4-4.8) g/dL Globulin 2.6 (2.0-3.5) g/dL Albumin/Globulin Ratio 1.3 (1.3-2.8) Meds: Medications Generic Name Dose Route Start Last Admin Trade Name Freq PRN Reason Stop Dose Admin Diltiazem HCl 100 mg/ Sodium 100 mls @ 10 mls/hr 04/05/17 16:15 Chloride IV TITRATE ASIYA Protocol 10 MG/HR Sodium Chloride 1,000 mls @ 125 mls/hr 04/05/17 16:16 04/05/17 16:53 Normal Saline IV 04/06/17 00:15 125 mls/hr STAT ONE Infusion Discontinued Medications Generic Name Dose Route Start Last Admin Trade Name Freq PRN Reason Stop Dose Admin Adenosine 6 mg 04/05/17 15:52 04/05/17 16:00 Adenocard IVPUSH 04/05/17 15:53 6 mg NOW ONE Administration Adenosine 12 mg 04/05/17 16:07 04/05/17 16:09 Adenocard IVPUSH 04/05/17 16:08 12 mg NOW ONE Administration Albuterol/Ipratropium 3 ml 04/05/17 15:40 04/05/17 15:44 Duoneb 3.0-0.5 Mg/3 Ml NEB 04/05/17 15:41 3 ml ONETIME ONE Administration Diltiazem HCl 20 mg 04/05/17 16:15 04/05/17 16:36 Diltiazem IVPUSH 04/05/17 16:16 20 mg ONETIME ONE Administration Diltiazem HCl 20 mg 04/05/17 16:14 04/05/17 16:45 Diltiazem IVPUSH 04/05/17 16:15 Not Given ONETIME ONE Sodium Chloride 1,000 mls @ 999 mls/hr 04/05/17 15:29 04/05/17 15:53 Normal Saline IV 04/05/17 16:29 999 mls/hr STAT ONE Administration Diltiazem HCl 100 mg/ Sodium 100 mls @ 10 mls/hr 04/05/17 16:15 Chloride IV TITRATE ASIYA Protocol 10 MG/HR Morphine Sulfate 4 mg 04/05/17 16:27 Morphine IVPUSH 04/05/17 16:28 ONETIME ONE Departure - Departure Time of Disposition: 17:08 Disposition: Admitted As Inpatient 68 Clinical Impression: SVT (supraventricular tachycardia), History of COPD Dyspnea Qualifiers: Dyspnea type: shortness of breath Qualified Code(s): R06.02 - Shortness of breath; R06.00 - Dyspnea, unspecified; R06.01 - Orthopnea - Discharge Information Referrals: PCP,None [Primary Care Provider] - - My Orders Last 24 Hours: My Active Orders 04/05/17 15:29 Cardiac Monitoring [RC] . DIRECTED EKG Documentation Completion [RC] STAT Chest 1V Frontal [CR] Stat 04/05/17 15:40 RT Aerosol Therapy [RC] ASDIRECTED 04/05/17 16:16 EKG Documentation Completion [RC] STAT Sodium Chloride 0.9% [Normal Saline] 1,000 ml IV STAT 04/05/17 16:48 EKG 12 Lead [EKG Documentation Completion] [RC] STAT 04/05/17 16:58 Admission Status [Patient Status] [ADT] Stat - Assessment/Plan Last 24 Hours: My Active Orders 04/05/17 15:29 Cardiac Monitoring [RC] . DIRECTED EKG Documentation Completion [RC] STAT Chest 1V Frontal [CR] Stat 04/05/17 15:40 RT Aerosol Therapy [RC] ASDIRECTED 04/05/17 16:16 EKG Documentation Completion [RC] STAT Sodium Chloride 0.9% [Normal Saline] 1,000 ml IV STAT 04/05/17 16:48 EKG 12 Lead [EKG Documentation Completion] [RC] STAT 04/05/17 16:58 Admission Status [Patient Status] [ADT] Stat
[2017-04-05] MEDS ORDERED: Albuterol/Ipratropium 3.0-0.5 MG/3 ML Neb Soln NEB ONE (15:40)
[2017-04-05] MEDS ORDERED: Adenosine 6 MG/2 ML SDV IVPUSH ONE ×2 (15:52→16:07)
[2017-04-05 16:05] LABS: CHLORIDE,CL 103 mmol/L (98-110); SODIUM,NA 139 mmol/L (136-146)
[2017-04-05] MEDS ORDERED: Diltiazem 25 MG/5 ML SDV IVPUSH ONE ×2 (16:14→16:15)
[2017-04-05] MEDS ORDERED: Diltiazem 100 MG in Sodium Chloride 0.9% 100 ML IV SCH ×4 (16:15)
[2017-04-05] MEDS ORDERED: Morphine 4 MG/ML Syringe IVPUSH ONE (16:27)
[2017-04-05] MEDS ORDERED: Potassium Chloride 20 MEQ Tab.ER PO ONE (19:01)
[2017-04-05] MEDS ORDERED: Albuterol/Ipratropium 3.0-0.5 MG/3 ML Neb Soln NEB PRN (19:14)
[2017-04-05] MEDS ORDERED: Ondansetron 4 MG/2 ML SDV IVPUSH PRN (19:15)
[2017-04-05] MEDS ORDERED: Acetaminophen 325 MG Tab PO PRN (19:15)
--- NOTE | 2017-04-05 19:23 | PCM.HP ---
H&P History of Present Illness - History of Present Illness Initial Comments - Free Text/Narative: 89 yo female who was recently discharge after being treated for COPD exacerbation and pneumonia. She was discharged two days ago on steroid villa and levaquin. After an emotional confrontation with her son she became short of breath and reported some chest pressure. On pulse oximeter she was noted to be tachycardic. They called home health who advised her to report to the ED. In the ED she was noted to have a super ventricular tachycardia with HR in the 150s. Blood pressure was 81/51. She was given Adenosine two times but failed to convert. She was also given diltiazem with slow down of her rate with conversion to normal sinus rhythm with rate of 70s. She does have periodic rates of 120s with an atrial rhythm. She reports her shortness of breath has resolved. - Related Data Allergies/Adverse Reactions: Allergies Allergy/AdvReac Type Severity Reaction Status Date / Time No Known Allergies Allergy Verified 04/06/17 02:11 Home Medications: Home Meds Albuterol/Ipratropium [DuoNeb 3.0-0.5 MG/3 ML] 3 ml NEB Q4HRRT PRN #1 box [Rx] Levofloxacin [Levaquin] 750 mg PO Q48H #7 tablet 04/03/17 [Rx] Prednisone [IJD: Prednisone] 10 mg PO DAILY #28 tab 04/03/17 [Rx] Past Medical History - Past Health History Medical/Surgical History: Denies Medical/Surgical History HEENT History: Reports: Cataract, Hard of Hearing Cardiovascular History: Reports: None Respiratory History: Reports: SOB Gastrointestinal History: Reports: None Genitourinary History: Reports: None 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 Musculoskeletal History: Reports: Other (See Below) 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 Neurological History: Reports: None Psychiatric History: Reports: None Endocrine/Metabolic History: Reports: None Hematologic History: Reports: None Immunologic History: Reports: None Oncologic (Cancer) History: Reports: None Dermatologic History: Reports: None - Infectious Disease History Infectious Disease History: Reports: Chicken Pox - Past Surgical History Head Surgeries/Procedures: Reports: None HEENT Surgical History: Reports: Cataract Surgery Cardiovascular Surgical History: Reports: None Respiratory Surgical History: Reports: None GI Surgical History: Reports: None Endocrine Surgical History: Reports: None Neurological Surgical History: Reports: None Musculoskeletal Surgical History: Reports: Knee Replacement Oncologic Surgical History: Reports: None Dermatological Surgical History: Reports: None Social & Family History - Family History Family Medical History: Noncontributory HEENT: Reports: None Cardiac: Reports: None Respiratory: Reports: None GI: Reports: None : Reports: None OBGYN: Reports: None Musculoskeletal: Reports: None Neurological: Reports: None Psychiatric: Reports: None Endocrine/Metabolic: Reports: None Immunologic: Reports: None Dermatologic: Reports: None Oncologic: Reports: None - Tobacco Use Smoking Status *Q: Never Smoker Second Hand Smoke Exposure: No - Caffeine Use Caffeine Use: Reports: Coffee - Alcohol Use Days Per Week of Alcohol Use: 1 Number of Drinks Per Day: 1 Total Drinks Per Week: 1 - Recreational Drug Use Recreational Drug Use: No - Living Situation & Occupation Living situation: Reports: Alone Occupation: Retired H&P Review of Systems - Review of Systems: Review Of Systems: ROS reveals no pertinent complaints other than HPI. Exam - Exam Exam: See Below - Vital Signs Vital Signs: Last Vital Signs Temp 36.8 C 04/05/17 17:31 Pulse 81 04/05/17 16:45 Resp 27 H 04/05/17 17:31 BP 98/56 L 04/05/17 17:31 Pulse Ox 94 L 04/05/17 17:31 Weight: 56.1 kg - Exam General: Alert, Oriented HEENT: Mucosa Moist & Zihlman Cardiovascular: Regular Rate, Regular Rhythm GI/Abdominal Exam: Soft, Non-Tender Extremities: Non-Tender, No Pedal Edema Skin: Warm, Dry, Intact Neurological: Cranial Nerves Intact - Patient Data Result Diagrams: 04/06/17 04:05 04/06/17 04:05 *Q Meaningful Use (ADM) - VTE *Q VTE Criteria *Q: - Stroke *Q Stroke Criteria *Q: - AMI *Q AMI Criteria *Q: Problem List Initiated/Reviewed/Updated: Yes Orders Last 24hrs: Active Orders 24 hr Category Date Time Status Antiembolic Devices [RC] PER UNIT ROUTINE Care 04/05/17 19:16 Ordered Intake and Output [RC] QSHIFT Care 04/05/17 19:15 Ordered Oxygen Therapy [RC] PRN Care 04/05/17 19:15 Ordered Up ad Samantha [RC] ASDIRECTED Care 04/05/17 19:15 Ordered VTE/DVT Education [RC] PER UNIT ROUTINE Care 04/05/17 19:15 Ordered Vital Signs [RC] Q4H Care 04/05/17 19:15 Ordered Regular Diet [DIET] Diet 04/05/17 Breakfast Ordered Echo 2D wo Cont [US] Routine Exams 04/05/17 19:01 Ordered BASIC METABOLIC PANEL,BMP [CHEM] AM Lab 04/06/17 05:11 Ordered CBC W/O DIFF,HEMOGRAM [HEME] AM Lab 04/06/17 05:11 Ordered MAGNESIUM [CHEM] Routine Lab 04/05/17 15:39 Received TROPONIN I [CHEM] Q6H Lab 04/05/17 22:00 Ordered TROPONIN I [CHEM] Q6H Lab 04/06/17 04:00 Ordered Acetaminophen [Tylenol] Med 04/05/17 19:15 Ordered 650 mg PO Q4H PRN Albuterol/Ipratropium [DuoNeb 3.0-0.5 MG/3 ML] Med 04/05/17 19:14 Ordered 3 ml NEB Q4HRRT PRN Diltiazem IR [Cardizem] Med 04/06/17 00:00 Ordered 15 mg PO Q6HR Enoxaparin [Lovenox] Med 04/06/17 09:00 Ordered 30 mg SUBCUT DAILY Levofloxacin [Levaquin] Med 04/05/17 19:15 Ordered 750 mg PO Q48H Ondansetron [Zofran] Med 04/05/17 19:15 Ordered 4 mg IVPUSH Q4H PRN predniSONE Med 04/06/17 09:00 Ordered 40 mg PO DAILY Sequential Compression Device [OM.PC] Per Unit Routine Oth 04/05/17 19:16 Ordered Resuscitation Status Routine Resus Stat 04/05/17 19:15 Ordered Medication Orders Acetaminophen (Tylenol) 650 mg PO Q4H PRN PRN Reason: Pain (Mild 1-3)/fever Albuterol/Ipratropium (Duoneb 3.0-0.5 Mg/3 Ml) 3 ml NEB Q4HRRT PRN PRN Reason: SOB/wheezing Diltiazem HCl (Cardizem) 15 mg PO Q6HR [facility] Enoxaparin Sodium (Lovenox) 30 mg SUBCUT DAILY [facility] Diltiazem HCl 100 mg/ Sodium (Chloride) 100 mls @ 10 mls/hr IV TITRATE [facility]; 10 MG/HR PRN Reason: Protocol Sodium Chloride (Normal Saline) 1,000 mls @ 125 mls/hr IV STAT ONE Stop: 04/06/17 00:15 Last Infusion: 04/05/17 16:53 Dose: 125 mls/hr Infusion: 04/05/17 16:45 Dose: 999 mls/hr Admin: 04/05/17 16:23 Dose: 125 mls/hr Levofloxacin (Levaquin) 750 mg PO Q48H [facility] Ondansetron HCl (Zofran) 4 mg IVPUSH Q4H PRN PRN Reason: Nausea Prednisone (Prednisone) 40 mg PO DAILY [facility] Assessment/Plan Comment:: 89 yo female with pmh of recent hospitalization for COPD exacerbation who presents with paroxysmal atrial tachycardia. Her blood pressure is borderline so will start low dose diltiazem for rate control. I will resume her steroid taper and levaquin. I will check TSH, magnesium, and trend cardiac enzymes.
[2017-04-05] MEDS ORDERED: Levofloxacin 500 MG Tab PO SCH (21:00)
[2017-04-06] MEDS: Diltiazem IR 30 MG Tab PO SCH ×5 (01:12→23:46)
[2017-04-06 04:35] LABS: CHLORIDE,CL 108 mmol/L (98-110); SODIUM,NA 138 mmol/L (136-146)
[2017-04-06] MEDS: Enoxaparin 40 MG/0.4 ML Syringe SUBCUT SCH (08:39)
[2017-04-06] MEDS ORDERED: predniSONE 10 MG Tab PO SCH (09:00)
--- NOTE | 2017-04-06 14:39 | PCM.PN ---
- General Info Date of Service: 04/06/17 - Review of Systems General: Reports: No Symptoms HEENT: Reports: No Symptoms Pulmonary: Reports: No Symptoms Cardiovascular: Reports: No Symptoms Gastrointestinal: Reports: No Symptoms Genitourinary: Reports: No Symptoms Musculoskeletal: Reports: No Symptoms Skin: Reports: No Symptoms Neurological: Reports: No Symptoms Psychiatric: Reports: No Symptoms, Confusion - Patient Data Vitals - Most Recent: Last Vital Signs Temp 97.5 F 04/06/17 12:00 Pulse 81 04/05/17 16:45 Resp 29 H 04/06/17 13:00 BP 147/88 H 04/06/17 13:00 Pulse Ox 92 L 04/06/17 13:00 Weight - Most Recent: 56.2 kg I&O - Last 24 Hours: Intake & Output 04/05/17 04/06/17 04/06/17 22:59 06:59 14:59 Intake Total 1000 1150 Output Total 950 Balance 1000 200 Lab Results Last 24 Hours: Laboratory Results - last 24 hr 04/05/17 04/06/17 04/06/17 Range/Units 21:49 04:05 04:05 WBC 4.70 (4.0-11.0) K/uL RBC 4.19 L (4.30-5.90) M/uL Hgb 11.9 L (12.0-16.0) g/dL Hct 36.2 (36.0-46.0) % MCV 86.4 (80.0-98.0) fL MCH 28.4 (27.0-32.0) pg MCHC 32.9 (31.0-37.0) g/dL RDW Std Deviation 48.6 (28.0-62.0) fl RDW Coeff of Kamaljit 15 (11.0-15.0) % Plt Count 215 (150-400) K/uL MPV 9.70 (7.40-12.00) fL Nucleated RBC % 0.0 /100WBC Nucleated RBCs # 0 K/uL Sodium (136-146) mmol/L Potassium (3.5-5.1) mmol/L Chloride (98-110) mmol/L Carbon Dioxide (21-31) mmol/L BUN (6.0-23.0) mg/dL Creatinine (0.6-1.5) mg/dL Est Cr Clr Drug Dosing mL/min Estimated GFR (MDRD) ml/min Glucose (60-110) mg/dL Calcium (8.8-10.8) mg/dL Troponin I < 0.10 < 0.10 (0.0-0.29) NG/ML 04/06/17 Range/Units 04:05 WBC (4.0-11.0) K/uL RBC (4.30-5.90) M/uL Hgb (12.0-16.0) g/dL Hct (36.0-46.0) % MCV (80.0-98.0) fL MCH (27.0-32.0) pg MCHC (31.0-37.0) g/dL RDW Std Deviation (28.0-62.0) fl RDW Coeff of Kamaljit (11.0-15.0) % Plt Count (150-400) K/uL MPV (7.40-12.00) fL Nucleated RBC % /100WBC Nucleated RBCs # K/uL Sodium 138 (136-146) mmol/L Potassium 4.6 (3.5-5.1) mmol/L Chloride 108 (98-110) mmol/L Carbon Dioxide 23 (21-31) mmol/L BUN 17 (6.0-23.0) mg/dL Creatinine 0.6 (0.6-1.5) mg/dL Est Cr Clr Drug Dosing 45.66 mL/min Estimated GFR (MDRD) > 60.0 ml/min Glucose 113 H (60-110) mg/dL Calcium 8.1 L (8.8-10.8) mg/dL Troponin I (0.0-0.29) NG/ML Med Orders - Current: Current Medications Acetaminophen (Tylenol) 650 mg PO Q4H PRN PRN Reason: Pain (Mild 1-3)/fever Albuterol/Ipratropium (Duoneb 3.0-0.5 Mg/3 Ml) 3 ml NEB Q4HRRT PRN PRN Reason: SOB/wheezing Diltiazem HCl (Cardizem) 15 mg PO Q6HR [facility] Last Admin: 04/06/17 12:57 Dose: 15 mg Enoxaparin Sodium (Lovenox) 40 mg SUBCUT DAILY [facility] Last Admin: 04/06/17 08:39 Dose: 40 mg Diltiazem HCl 100 mg/ Sodium (Chloride) 100 mls @ 10 mls/hr IV TITRATE ASIYA; 10 MG/HR PRN Reason: Protocol Levofloxacin (Levaquin) 750 mg PO Q48H [facility] Last Admin: 04/05/17 21:03 Dose: Not Given Ondansetron HCl (Zofran) 4 mg IVPUSH Q4H PRN PRN Reason: Nausea Prednisone (Prednisone) 40 mg PO DAILY [facility] Last Admin: 04/06/17 08:39 Dose: 40 mg Discontinued Medications Adenosine (Adenocard) 6 mg IVPUSH NOW ONE Stop: 04/05/17 15:53 Last Admin: 04/05/17 16:00 Dose: 6 mg Adenosine (Adenocard) 12 mg IVPUSH NOW ONE Stop: 04/05/17 16:08 Last Admin: 04/05/17 16:09 Dose: 12 mg Albuterol/Ipratropium (Duoneb 3.0-0.5 Mg/3 Ml) 3 ml NEB ONETIME ONE Stop: 04/05/17 15:41 Last Admin: 04/05/17 15:44 Dose: 3 ml Diltiazem HCl (Diltiazem) 20 mg IVPUSH ONETIME ONE Stop: 04/05/17 16:16 Last Admin: 04/05/17 16:36 Dose: 20 mg Diltiazem HCl (Diltiazem) 20 mg IVPUSH ONETIME ONE Stop: 04/05/17 16:15 Last Admin: 04/05/17 16:45 Dose: Not Given Sodium Chloride (Normal Saline) 1,000 mls @ 999 mls/hr IV STAT ONE Stop: 04/05/17 16:29 Last Admin: 04/05/17 15:53 Dose: 999 mls/hr Diltiazem HCl 100 mg/ Sodium (Chloride) 100 mls @ 10 mls/hr IV TITRATE ASIYA; 10 MG/HR PRN Reason: Protocol Sodium Chloride (Normal Saline) 1,000 mls @ 125 mls/hr IV STAT ONE Stop: 04/06/17 00:15 Last Infusion: 04/05/17 16:53 Dose: 125 mls/hr Morphine Sulfate (Morphine) 4 mg IVPUSH ONETIME ONE Stop: 04/05/17 16:28 Last Admin: 11/19/17 18:20 Dose: Not Given Potassium Chloride (Klor-Con M20) 40 meq PO ONETIME ONE Stop: 04/05/17 19:02 Last Admin: 04/05/17 19:44 Dose: 40 meq - Exam General: Alert, Oriented HEENT: Pupils Equal, Pupils Reactive, EOMI Lungs: Normal Respiratory Effort, Decreased Breath Sounds Cardiovascular: Tachycardia GI/Abdominal Exam: Normal Bowel Sounds, Soft Back Exam: Normal Inspection, Full Range of Motion Extremities: Normal Inspection, Normal Range of Motion Skin: Warm, Dry, Intact Neurological: No New Focal Deficit Psy/Mental Status: Alert, Normal Affect, Normal Mood - Problem List Review Problem List Initiated/Reviewed/Updated: Yes - Plan Plan:: 89 yo female with pmh of recent hospitalization for COPD exacerbation who presents with paroxysmal atrial tachycardia. improving. continue low dose cardizem Pneumonia: Continue levaquin COPD: conitnue steroid taper. DVT prophylaxis: lovenox
--- NOTE | 2017-04-06 16:10 | CR ---
EXAM DATE: 04/05/17 PATIENT'S AGE: 89 Patient: BEBE NAGEL Facility: [place], [place] Site . Site : [id number] Study: XRay Chest [id number] 5:04:21 PM Ordering Physician: Dusty Arauz Final Report: CHEST 1 VIEW AP INDICATION: Short of breath COMPARISON: 03/31/2017 IMPRESSION: Stable heart size and vascular pattern. Lungs are clear of new focal opacities. No pneumothorax or pleural abnormality. Dictated by Bk Quiroz MD @ Apr 05 2017 5:42PM (Electronic Signature) Report Signed by Proxy. MARIBEL
[2017-04-07 06:00] LABS: CHLORIDE,CL 104 mmol/L (98-110); SODIUM,NA 137 mmol/L (136-146)
[2017-04-07] MEDS: Diltiazem IR 30 MG Tab PO SCH (06:07)
[2017-04-07] MEDS: Enoxaparin 40 MG/0.4 ML Syringe SUBCUT SCH (08:11)
[2017-04-07] MEDS ORDERED: predniSONE 20 MG Tab PO SCH (09:00)
[2017-04-07] MEDS ORDERED: Diltiazem 120 MG Cap.CD PO SCH (10:30)
--- NOTE | 2017-04-07 11:09 | PCM.DCSUM1 ---
<Sara Valenzuela - Last Filed: 04/10/17 16:16> Discharge Summary - Hospital Course Free Text/Narrative:: 89 yo female with history of COPD admitted for SVT. She was recently discharge after being treated for COPD exacerbation and pneumonia. She was discharged two days ago on steroid villa and levaquin. After an emotional confrontation with her son she became short of breath and reported some chest pressure. On pulse oximeter 94% in RA.she was noted to be tachycardic HR 114-118. In the ED she was noted to have a super ventricular tachycardia with HR in the 150s. Blood pressure was 81/51. She was given Adenosine two times but failed to convert. She was also given diltiazem with slow down of her rate with conversion to normal sinus rhythm with rate of 70s. She does have periodic rates of 120s with an atrial rhythm. She was monitored in Telemetry. She did not have any episodes of arrythmias after treatment with Cardizem. Her Heart rate is controlled in 90's. She was continued with levaquin, steroids and duoneb. She was discharged with cardizem 120 mg po qd. Her sputum culture is normal respiratory elena. Home health care has been ordered for recent hospitalization. - Discharge Data Discharge Date: 04/07/17 Discharge Disposition: Home, Self-Care 01 Condition: Stable - Patient Instructions Diet: Heart Healthy Diet Activity: As Tolerated Driving: Do Not Drive Showering/Bathing: May Shower Notify Provider of: Fever, Increased Pain, Swelling and Redness, Drainage, Nausea and/or Vomiting Other/Special Instructions: Home health care - Discharge Plan Prescriptions/Med Rec: Diltiazem [Cardizem CD] 120 mg PO DAILY #30 cap.cd Home Medications: Home Meds Albuterol/Ipratropium [DuoNeb 3.0-0.5 MG/3 ML] 3 ml NEB Q4HRRT PRN #1 box [Rx] Levofloxacin [Levaquin] 750 mg PO Q48H #7 tablet 04/03/17 [Rx] Prednisone [IJD: Prednisone] 10 mg PO DAILY #28 tab 04/03/17 [Rx] Diltiazem [Cardizem CD] 120 mg PO DAILY #30 cap.cd 04/07/17 [Rx] Patient Handouts: Diltiazem extended-release capsules or tablets, Paroxysmal Supraventricular Tachycardia, [id number] Referrals: Tramaine Paez [Resident] - 04/13/17 9:30 am - General Info Date of Service: 04/07/17 Functional Status: Reports: Tolerating Diet - Review of Systems General: Reports: No Symptoms HEENT: Reports: No Symptoms Pulmonary: Reports: No Symptoms Cardiovascular: Reports: No Symptoms Gastrointestinal: Reports: No Symptoms Genitourinary: Reports: No Symptoms Musculoskeletal: Reports: No Symptoms Skin: Reports: No Symptoms Neurological: Reports: No Symptoms Psychiatric: Reports: No Symptoms - Patient Data Vitals - Most Recent: Last Vital Signs Temp 97.7 F 04/07/17 08:00 Pulse 81 04/05/17 16:45 Resp 20 04/07/17 11:00 BP 110/59 L 04/07/17 11:00 Pulse Ox 92 L 04/07/17 11:00 Weight - Most Recent: 120 lb 2.431 oz I&O - Last 24 hours: Intake & Output 04/06/17 04/07/17 04/07/17 22:59 06:59 14:59 Intake Total 850 850 Output Total 2200 1800 Balance -1350 -950 Lab Results - Last 24 hrs: Laboratory Results - last 24 hr 04/07/17 04/07/17 Range/Units 05:32 05:32 WBC 6.62 (4.0-11.0) K/uL RBC 4.52 (4.30-5.90) M/uL Hgb 12.6 (12.0-16.0) g/dL Hct 39.2 (36.0-46.0) % MCV 86.7 (80.0-98.0) fL MCH 27.9 (27.0-32.0) pg MCHC 32.1 (31.0-37.0) g/dL RDW Std Deviation 49.4 (28.0-62.0) fl RDW Coeff of Kamaljit 16 H (11.0-15.0) % Plt Count 216 (150-400) K/uL MPV 9.60 (7.40-12.00) fL Neut % (Auto) 61.1 (48.0-80.0) % Lymph % (Auto) 22.7 (16.0-40.0) % Randall % (Auto) 14.8 (0.0-15.0) % Eos % (Auto) 1.4 (0.0-7.0) % Baso % (Auto) 0.0 (0.0-1.5) % Neut # (Auto) 4.1 (1.4-5.7) K/uL Lymph # (Auto) 1.5 (0.6-2.4) K/uL Randall # (Auto) 1.0 H (0.0-0.8) K/uL Eos # (Auto) 0.1 (0.0-0.7) K/uL Baso # (Auto) 0.0 (0.0-0.1) K/uL Nucleated RBC % 0.0 /100WBC Nucleated RBCs # 0 K/uL Sodium 137 (136-146) mmol/L Potassium 4.2 (3.5-5.1) mmol/L Chloride 104 (98-110) mmol/L Carbon Dioxide 27 (21-31) mmol/L BUN 15 (6.0-23.0) mg/dL Creatinine 0.6 (0.6-1.5) mg/dL Est Cr Clr Drug Dosing 45.66 mL/min Estimated GFR (MDRD) > 60.0 ml/min Glucose 89 (60-110) mg/dL Calcium 8.3 L (8.8-10.8) mg/dL Med Orders - Current: Current Medications Acetaminophen (Tylenol) 650 mg PO Q4H PRN PRN Reason: Pain (Mild 1-3)/fever Diltiazem HCl (Cardizem Cd) 120 mg PO DAILY [facility] Enoxaparin Sodium (Lovenox) 40 mg SUBCUT DAILY [facility] Last Admin: 04/07/17 08:11 Dose: 40 mg Levofloxacin (Levaquin) 750 mg PO Q48H [facility] Last Admin: 04/05/17 21:03 Dose: Not Given Ondansetron HCl (Zofran) 4 mg IVPUSH Q4H PRN PRN Reason: Nausea Prednisone (Prednisone) 20 mg PO DAILY [facility] Stop: 04/10/17 09:01 Last Admin: 04/07/17 08:11 Dose: 20 mg Prednisone (Prednisone) 10 mg PO DAILY [facility] Stop: 04/14/17 09:01 Discontinued Medications Adenosine (Adenocard) 6 mg IVPUSH NOW ONE Stop: 04/05/17 15:53 Last Admin: 04/05/17 16:00 Dose: 6 mg Adenosine (Adenocard) 12 mg IVPUSH NOW ONE Stop: 04/05/17 16:08 Last Admin: 04/05/17 16:09 Dose: 12 mg Albuterol/Ipratropium (Duoneb 3.0-0.5 Mg/3 Ml) 3 ml NEB ONETIME ONE Stop: 04/05/17 15:41 Last Admin: 04/05/17 15:44 Dose: 3 ml Albuterol/Ipratropium (Duoneb 3.0-0.5 Mg/3 Ml) 3 ml NEB Q4HRRT PRN PRN Reason: SOB/wheezing Diltiazem HCl (Diltiazem) 20 mg IVPUSH ONETIME ONE Stop: 04/05/17 16:16 Last Admin: 04/05/17 16:36 Dose: 20 mg Diltiazem HCl (Diltiazem) 20 mg IVPUSH ONETIME ONE Stop: 04/05/17 16:15 Last Admin: 04/05/17 16:45 Dose: Not Given Diltiazem HCl (Cardizem) 15 mg PO Q6HR [facility] Last Admin: 04/07/17 06:07 Dose: 15 mg Sodium Chloride (Normal Saline) 1,000 mls @ 999 mls/hr IV STAT ONE Stop: 04/05/17 16:29 Last Admin: 04/05/17 15:53 Dose: 999 mls/hr Diltiazem HCl 100 mg/ Sodium (Chloride) 100 mls @ 10 mls/hr IV TITRATE ASIYA; 10 MG/HR PRN Reason: Protocol Diltiazem HCl 100 mg/ Sodium (Chloride) 100 mls @ 10 mls/hr IV TITRATE ASIYA; 10 MG/HR PRN Reason: Protocol Sodium Chloride (Normal Saline) 1,000 mls @ 125 mls/hr IV STAT ONE Stop: 04/06/17 00:15 Last Infusion: 04/05/17 16:53 Dose: 125 mls/hr Morphine Sulfate (Morphine) 4 mg IVPUSH ONETIME ONE Stop: 04/05/17 16:28 Last Admin: 04/05/17 18:20 Dose: Not Given Potassium Chloride (Klor-Con M20) 40 meq PO ONETIME ONE Stop: 04/05/17 19:02 Last Admin: 04/05/17 19:44 Dose: 40 meq Prednisone (Prednisone) 40 mg PO DAILY [facility] Stop: 04/06/17 09:01 Last Admin: 04/06/17 08:39 Dose: 40 mg - Exam General: Reports: Alert, Oriented HEENT: Reports: Pupils Equal, EOMI Neck: Reports: Supple, Trachea Midline Lungs: Reports: Decreased Breath Sounds Cardiovascular: Reports: Regular Rate, Regular Rhythm GI/Abdominal Exam: Normal Bowel Sounds, Soft Extremities: Normal Inspection, Normal Range of Motion Skin: Reports: Warm, Dry, Intact Neurological: Reports: No New Focal Deficit Psy/Mental Status: Reports: Alert, Normal Affect, Normal Mood *Q Meaningful Use (DIS) - VTE *Q VTE Criteria *Q: - Stroke *Q Stroke Criteria *Q: - AMI *Q AMI Criteria *Q: <Ramos Mann - Last Filed: 04/10/17 16:49> Discharge Summary - Hospital Course Free Text/Narrative:: Patient was seen and examined , agree with discharge summary - Patient Data Vitals - Most Recent: Last Vital Signs Temp 97.8 F 04/07/17 12:00 Pulse 70 04/07/17 12:00 Resp 20 04/07/17 12:00 BP 120/86 04/07/17 12:00 Pulse Ox 93 L 04/07/17 12:00 Med Orders - Current: Current Medications Discontinued Medications Acetaminophen (Tylenol) 650 mg PO Q4H PRN PRN Reason: Pain (Mild 1-3)/fever Adenosine (Adenocard) 6 mg IVPUSH NOW ONE Stop: 04/05/17 15:53 Last Admin: 04/05/17 16:00 Dose: 6 mg Adenosine (Adenocard) 12 mg IVPUSH NOW ONE Stop: 04/05/17 16:08 Last Admin: 04/05/17 16:09 Dose: 12 mg Albuterol/Ipratropium (Duoneb 3.0-0.5 Mg/3 Ml) 3 ml NEB ONETIME ONE Stop: 04/05/17 15:41 Last Admin: 04/05/17 15:44 Dose: 3 ml Albuterol/Ipratropium (Duoneb 3.0-0.5 Mg/3 Ml) 3 ml NEB Q4HRRT PRN PRN Reason: SOB/wheezing Diltiazem HCl (Diltiazem) 20 mg IVPUSH ONETIME ONE Stop: 04/05/17 16:16 Last Admin: 04/05/17 16:36 Dose: 20 mg Diltiazem HCl (Diltiazem) 20 mg IVPUSH ONETIME ONE Stop: 04/05/17 16:15 Last Admin: 04/05/17 16:45 Dose: Not Given Diltiazem HCl (Cardizem) 15 mg PO Q6HR [facility] Last Admin: 04/07/17 06:07 Dose: 15 mg Diltiazem HCl (Cardizem Cd) 120 mg PO DAILY [facility] Last Admin: 04/07/17 11:18 Dose: 120 mg Enoxaparin Sodium (Lovenox) 40 mg SUBCUT DAILY [facility] Last Admin: 04/07/17 08:11 Dose: 40 mg Erythromycin Ethylsuccinate (Eryped 200) 250 mg PO Q8HR [facility] Sodium Chloride (Normal Saline) 1,000 mls @ 999 mls/hr IV STAT ONE Stop: 04/05/17 16:29 Last Admin: 04/05/17 15:53 Dose: 999 mls/hr Diltiazem HCl 100 mg/ Sodium (Chloride) 100 mls @ 10 mls/hr IV TITRATE [facility]; 10 MG/HR PRN Reason: Protocol Diltiazem HCl 100 mg/ Sodium (Chloride) 100 mls @ 10 mls/hr IV TITRATE [facility]; 10 MG/HR PRN Reason: Protocol Sodium Chloride (Normal Saline) 1,000 mls @ 125 mls/hr IV STAT ONE Stop: 04/06/17 00:15 Last Infusion: 04/05/17 16:53 Dose: 125 mls/hr Levofloxacin (Levaquin) 750 mg PO Q48H [facility] Last Admin: 04/05/17 21:03 Dose: Not Given Morphine Sulfate (Morphine) 4 mg IVPUSH ONETIME ONE Stop: 04/05/17 16:28 Last Admin: 04/05/17 18:20 Dose: Not Given Ondansetron HCl (Zofran) 4 mg IVPUSH Q4H PRN PRN Reason: Nausea Potassium Chloride (Klor-Con M20) 40 meq PO ONETIME ONE Stop: 04/05/17 19:02 Last Admin: 04/05/17 19:44 Dose: 40 meq Prednisone (Prednisone) 40 mg PO DAILY [facility] Stop: 04/06/17 09:01 Last Admin: 04/06/17 08:39 Dose: 40 mg Prednisone (Prednisone) 20 mg PO DAILY [facility] Stop: 04/10/17 09:01 Last Admin: 04/07/17 08:11 Dose: 20 mg Prednisone (Prednisone) 10 mg PO DAILY [facility] Stop: 04/14/17 09:01 *Q Meaningful Use (DIS) - VTE *Q VTE Criteria *Q: - Stroke *Q Stroke Criteria *Q: - AMI *Q AMI Criteria *Q:
[2017-04-07] MEDS ORDERED: Erythromycin Ethylsuccinate Susp 200 MG/5 ML 100 ML Bottle PO SCH (14:00)
[2017-04-07 14:16] VITALS: BP 120/86
--- NOTE | 2017-04-08 15:40 | ECHO ---
EXAM DATE: 04/05/17 PATIENT'S AGE: 89 The echocardiogram report can be seen in this patient's EMR (Electronic Medical Record) in the Reports section. The report has also been scanned into PACs. MARIBEL
[2017-04-11] MEDS ORDERED: predniSONE 10 MG Tab PO SCH (09:00)
== END 2017-04-07 13:30 | disposition home or self-care (01) | DRG 308 ==
LOC: MW.ED 15:28 → MW.ICU 16:58 → UNDOADMIN 17:49 → UNDODISIN 04-07 13:30
PROVIDERS: ADMIT Internal Medicine; ATTEND Internal Medicine
DX: I47.1 Supraventricular tachycardia (principal); R06.00 Dyspnea, unspecified; J18.9 Pneumonia, unspecified organism; R06.01 Orthopnea; J44.9 Chronic obstructive pulmonary disease, unspecified; Z79.899 Other long term (current) drug therapy
CPT/HCPCS: 36415; 71010; 80053; 83735; 84443; 84484; 85025; 93005; 94640; J0153 ×2; J3490; J7040 ×2; 80048; 85027; 93306; 96361; 96374; 96375; 99284; 99285-25; A9270-GY; J1650; J7030

== ENCOUNTER 2017-04-28 19:58 | Emergency (ER) | payer MEDICARE, OTHER ==
[2017-04-28 20:38] VITALS: BP 125/71
[2017-04-28] MEDS ORDERED: Ketorolac 30 MG/ML SDV IVPUSH ONE (20:41)
[2017-04-28] MEDS ORDERED: Sodium Chloride 0.9% 2.5 ML Syringe FLUSH PRN (20:41)
[2017-04-28] MEDS ORDERED: Sodium Chloride 0.9% 10 ML Syringe FLUSH PRN (20:41)
[2017-04-28] MEDS ORDERED: Sodium Chloride 0.9% 250 ML IV SCH (20:45)
--- NOTE | 2017-04-28 20:49 | EDM.PDOC ---
ED HPI GENERAL MEDICAL PROBLEM - General Chief Complaint: Upper Extremity Injury/Pain Stated Complaint: FALL Time Seen by Provider: 04/28/17 20:23 - History of Present Illness INITIAL COMMENTS - FREE TEXT/NARRATIVE: HISTORY AND PHYSICAL: History of present illness: Patient is an 89-year-old female who presents with family after she had a fall which was unwitnessed down 8 stairs at her home. According to the family she was on the floor about an hour and could not get up until her family got there. Patient says she misstepped and fell forward and slid down the majority of the stairs on her abdomen and she complains of right abdominal pain bilateral knee pain and diffuse body aches. The patient has a history of an admission here mid- March for COPD and pneumonia and also has SVT for which she was treated with diltiazem and she is currently taking. She uses home oxygen as needed and she has nebulizer treatments that she uses for her COPD. Prior to this fall she states she was in her usual state of good health and had no fever chills chest pain shortness of breath abdominal pain vomiting or diarrhea and has had normal urine output. Patient has been following with Dr. Velazquez at [facility]. Per the family the patient initially was unsure how she fell and over the course of frequent conversations she seems to be more sure of what happened but when I queried her about some other thing she seems very confused which the family says is new. Patient came in by family car and is able to move about the bed without assistance Review of systems: As per history of present illness and below otherwise all systems reviewed and negative. Past medical history: As per history of present illness and as reviewed below otherwise noncontributory. Surgical history: As per history of present illness and as reviewed below otherwise noncontributory. Social history: No reported history of drug or alcohol abuse. Family history: As per history of present illness and as reviewed below otherwise noncontributory. Physical exam: Gen.: Well-developed frail woman who is nontoxic and vital signs of been reviewed by me HEENT: Atraumatic except for some superficial scattered oozing seen at her right zygoma and right temporal area without bony deformities defects or tenderness, there is no scalp tenderness defects or deformities appreciated,, normocephalic, pupils reactive and the right pupil has irregularity inferiorly which the patient says is old, negative for conjunctival pallor or scleral icterus, mucous membranes tacky, throat clear, neck supple, nontender, trachea midline. There are no midline step-offs in his defects of the cervical spine Lungs: Clear to auscultation with some slight diminished breath sounds in the bases but no work of breathing stridor or wheezing, breath sounds equal bilaterally, chest nontender. Her are no rib defects deformities ecchymosis or crepitus appreciated Heart: S1S2, regular, negative for clicks, rubs, or JVD. Abdomen: Soft, nondistended, there is diffuse tenderness in the right abdomen throughout without any focality there is no rebound or guarding and bowel sounds are normoactive. There is no rebound or guarding. There is no abrasions or soft tissue injuries visualized and there is an old well-healed infraumbilical scar seen Negative for masses or hepatosplenomegaly. Negative for costovertebral tenderness. Pelvis: Stable nontender. There is no lateral hip tenderness and she has full range of motion of the hips on passive motion Genitourinary: Deferred. Rectal: Deferred. Extremities: Atraumatic with the exception of bilateral knees have some pinkish erythema without any skin break and there are old scars present bilaterally. There is no bony deformities or defects and there is only mild tenderness in this area. Patient is able to range of motion at the knees. There is also a small area of redness on her lateral soft tissue thigh area which is distal to the hip and pelvis and there is tenderness in this region. Bilateral anterior shoulders have some redness on the left greater than right and there is no palpable bony deformities. The family tells me that she has frozen shoulders bilaterally and doesn't have a lot of range of motion and that is not new. The legs are, negative for cords or calf pain. Neurovascular unremarkable. Neuro: Awake, alert, oriented. Cranial nerves II through XII unremarkable. Cerebellum unremarkable. Motor and sensory unremarkable throughout. Exam nonfocal. Skin: No evidence of diaphoresis or rashes and soft tissue injuries are described as above Back: There are no midline step-offs in his defects of the thoracic or lumbar spine no posterior rib or posterior pelvis tenderness and no visible evidence of any soft tissue injuries such as ecchymosis or abrasions Diagnostics: EKG CBC CMP INR troponin UA urine culture if indicated CT scan of the head C- spine chest abdomen and pelvis, bilateral shoulder x-rays bilateral knee x-rays right hip with pelvis x-ray Therapeutics: IV O2 monitor gentle IV fluids Toradol I discussed with patient and family at bedside all testing results which are completely without any acute changes. They are aware of the constipation on the CAT scan as well as the old L1 compression fracture which they state they were aware of. All of the joints show degenerative changes which they're made aware of. I've advised Tylenol and low-dose Motrin for pain as well as ice and heat and close follow-up with her provider Dr. Velazquez at [facility]. Impression: Fall with head abdominal bilateral shoulder right hip and bilateral knee contusions stable Definitive disposition and diagnosis as appropriate pending reevaluation and review of above. neck & back area Pain Score (Numeric/FACES): 7 - Related Data Allergies Allergy/AdvReac Type Severity Reaction Status Date / Time No Known Allergies Allergy Verified 04/28/17 20:13 Home Meds: Home Meds Albuterol/Ipratropium [DuoNeb 3.0-0.5 MG/3 ML] 3 ml NEB Q4HRRT PRN #1 box [Rx] Diltiazem [Cardizem CD] 120 mg PO DAILY #30 cap.cd 04/07/17 [Rx] Past Medical History - Past Health History Medical/Surgical History: Denies Medical/Surgical History HEENT History: Reports: Cataract, Hard of Hearing Cardiovascular History: Reports: Other (See Below) Other Cardiovascular History: Heart Condition Respiratory History: Reports: COPD, SOB Other Respiratory History: on O2 dependent @ home Gastrointestinal History: Reports: None Genitourinary History: Reports: None 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 History: Reports: Musculoskeletal History: Reports: Other (See Below) 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 Neurological History: Reports: None Psychiatric History: Reports: None Endocrine/Metabolic History: Reports: None Hematologic History: Reports: None Immunologic History: Reports: None Oncologic (Cancer) History: Reports: None Dermatologic History: Reports: None - Infectious Disease History Infectious Disease History: Reports: Chicken Pox, Measles - Past Surgical History Head Surgeries/Procedures: Reports: None HEENT Surgical History: Reports: Cataract Surgery Cardiovascular Surgical History: Reports: None Respiratory Surgical History: Reports: None GI Surgical History: Reports: None Endocrine Surgical History: Reports: None Neurological Surgical History: Reports: None Musculoskeletal Surgical History: Reports: Knee Replacement Oncologic Surgical History: Reports: None Dermatological Surgical History: Reports: None Social & Family History - Family History Family Medical History: Noncontributory HEENT: Reports: None Cardiac: Reports: None Respiratory: Reports: None GI: Reports: None : Reports: None OBGYN: Reports: None Musculoskeletal: Reports: None Neurological: Reports: None Psychiatric: Reports: None Endocrine/Metabolic: Reports: None Immunologic: Reports: None Dermatologic: Reports: None Oncologic: Reports: None - Tobacco Use Smoking Status *Q: Never Smoker Second Hand Smoke Exposure: No - Caffeine Use Caffeine Use: Reports: Coffee - Alcohol Use Days Per Week of Alcohol Use: 1 Number of Drinks Per Day: 1 Total Drinks Per Week: 1 - Recreational Drug Use Recreational Drug Use: No - Living Situation & Occupation Living situation: Reports: Alone Occupation: Retired Review of Systems - Review of Systems Review Of Systems: ROS reveals no pertinent complaints other than HPI. ED EXAM, GENERAL - Physical Exam Exam: See Below (see dictation) Course - Vital Signs Last Recorded V/S: Last Vital Signs Temp 37.1 C 04/28/17 20:14 Pulse 87 04/28/17 20:36 Resp 20 04/28/17 20:36 BP 125/71 04/28/17 20:36 Pulse Ox 98 04/28/17 20:36 - Orders/Labs/Meds Orders: Active Orders 24 hr Category Date Time Status Cardiac Monitoring [RC] . DIRECTED Care 04/28/17 20:39 Active EKG Documentation Completion [RC] STAT Care 04/28/17 20:39 Active Oxygen Therapy, ED [RC] ASDIRECTED Care 04/28/17 20:39 Active Pulse Oximetry [RC] ASDIRECTED Care 04/28/17 20:39 Active Abdomen Pelvis w Cont [CT] Stat Exams 04/28/17 20:40 Taken Cervical Spine wo Cont [CT] Stat Exams 04/28/17 20:40 Taken Chest w Cont [CT] Stat Exams 04/28/17 20:40 Taken Head wo Cont [CT] Stat Exams 04/28/17 20:40 Taken Hip Min 2V or 3V w Pelvis Rt [CR] Stat Exams 04/28/17 20:49 Taken Knee 3V Lt [CR] Stat Exams 04/28/17 20:41 Taken Knee 3V Rt [CR] Stat Exams 04/28/17 20:41 Taken Shoulder Comp Lt [CR] Stat Exams 04/28/17 20:40 Taken Shoulder Comp Rt [CR] Stat Exams 04/28/17 20:40 Taken Sodium Chloride 0.9% [Normal Saline] 250 ml Med 04/28/17 20:45 Active IV STAT Sodium Chloride 0.9% [Saline Flush] Med 04/28/17 20:41 Active 10 ml FLUSH ASDIRECTED PRN Sodium Chloride 0.9% [Saline Flush] Med 04/28/17 20:41 Active 2.5 ml FLUSH ASDIRECTED PRN Saline Lock Insert [OM.PC] Stat Oth 04/28/17 20:39 Ordered Medication Orders Sodium Chloride (Normal Saline) 250 mls @ 999 mls/hr IV STAT ASIYA Last Admin: 04/28/17 21:08 Dose: 999 mls/hr Sodium Chloride (Saline Flush) 10 ml FLUSH ASDIRECTED PRN PRN Reason: Keep Vein Open Last Admin: 04/28/17 20:45 Dose: 10 ml Sodium Chloride (Saline Flush) 2.5 ml FLUSH ASDIRECTED PRN PRN Reason: Keep Vein Open Last Admin: 04/28/17 20:46 Dose: 2.5 ml Labs: Laboratory Tests 04/28/17 04/28/17 04/28/17 Range/Units 20:45 20:45 20:45 WBC 6.46 (4.0-11.0) K/uL RBC 4.64 (4.30-5.90) M/uL Hgb 13.1 (12.0-16.0) g/dL Hct 40.1 (36.0-46.0) % MCV 86.4 (80.0-98.0) fL MCH 28.2 (27.0-32.0) pg MCHC 32.7 (31.0-37.0) g/dL RDW Std Deviation 48.4 (28.0-62.0) fl RDW Coeff of Kamaljit 15 (11.0-15.0) % Plt Count 239 (150-400) K/uL MPV 9.20 (7.40-12.00) fL Add Manual Diff YES Neutrophils % (Manual) 69 (48.0-80.0) % Lymphocytes % (Manual) 20 (16.0-40.0) % Monocytes % (Manual) 10 (0.0-15.0) % Eosinophils % (Manual) 1 (0.0-7.0) % Nucleated RBC % 0.0 /100WBC Absolute Seg Neuts 4.5 (1.4-5.7) Lymphocytes # (Manual) 1.3 (0.6-2.4) Monocytes # (Manual) 0.6 (0.0-0.8) Eosinophils # (Manual) 0.1 (0.0-0.7) Nucleated RBCs # 0 K/uL INR 1.02 (0.86-1.11) Sodium 140 (136-146) mmol/L Potassium 4.1 (3.5-5.1) mmol/L Chloride 107 (98-110) mmol/L Carbon Dioxide 23 (21-31) mmol/L BUN 13 (6.0-23.0) mg/dL Creatinine 0.9 (0.6-1.5) mg/dL Est Cr Clr Drug Dosing 30.44 mL/min Estimated GFR (MDRD) 59.0 ml/min Glucose 101 (60-110) mg/dL Calcium 9.4 (8.8-10.8) mg/dL Total Bilirubin 0.6 (0.1-1.5) mg/dL AST 18 (5-40) IU/L ALT 11 (8-54) IU/L Alkaline Phosphatase 78 (40-150) Creatine Kinase (9-236) IU/L Troponin I < 0.10 (0.0-0.29) NG/ML Total Protein 6.3 (6.0-8.0) g/dL Albumin 3.4 (3.4-4.8) g/dL Globulin 2.9 (2.0-3.5) g/dL Albumin/Globulin Ratio 1.2 L (1.3-2.8) Urine Color Urine Appearance Urine pH (5.0-8.0) Ur Specific [place] (1.001-1.035) Urine Protein (NEGATIVE) mg/dL Urine Glucose (UA) (NEGATIVE) mg/dL Urine Ketones (NEGATIVE) mg/dL Urine Occult Blood (NEGATIVE) Urine Nitrite (NEGATIVE) Urine Bilirubin (NEGATIVE) Urine Urobilinogen (<2.0) EU/dL Ur Leukocyte Esterase (NEGATIVE) Urine RBC (0-2/HPF) Urine WBC (0-5/HPF) Ur Epithelial Cells (NONE-FEW) Urine Bacteria (NEGATIVE) 04/28/17 04/28/17 Range/Units 20:45 23:34 WBC (4.0-11.0) K/uL RBC (4.30-5.90) M/uL Hgb (12.0-16.0) g/dL Hct (36.0-46.0) % MCV (80.0-98.0) fL MCH (27.0-32.0) pg MCHC (31.0-37.0) g/dL RDW Std Deviation (28.0-62.0) fl RDW Coeff of Kamaljit (11.0-15.0) % Plt Count (150-400) K/uL MPV (7.40-12.00) fL Add Manual Diff Neutrophils % (Manual) (48.0-80.0) % Lymphocytes % (Manual) (16.0-40.0) % Monocytes % (Manual) (0.0-15.0) % Eosinophils % (Manual) (0.0-7.0) % Nucleated RBC % /100WBC Absolute Seg Neuts (1.4-5.7) Lymphocytes # (Manual) (0.6-2.4) Monocytes # (Manual) (0.0-0.8) Eosinophils # (Manual) (0.0-0.7) Nucleated RBCs # K/uL INR (0.86-1.11) Sodium (136-146) mmol/L Potassium (3.5-5.1) mmol/L Chloride (98-110) mmol/L Carbon Dioxide (21-31) mmol/L BUN (6.0-23.0) mg/dL Creatinine (0.6-1.5) mg/dL Est Cr Clr Drug Dosing mL/min Estimated GFR (MDRD) ml/min Glucose (60-110) mg/dL Calcium (8.8-10.8) mg/dL Total Bilirubin (0.1-1.5) mg/dL AST (5-40) IU/L ALT (8-54) IU/L Alkaline Phosphatase (40-150) Creatine Kinase 35 (9-236) IU/L Troponin I (0.0-0.29) NG/ML Total Protein (6.0-8.0) g/dL Albumin (3.4-4.8) g/dL Globulin (2.0-3.5) g/dL Albumin/Globulin Ratio (1.3-2.8) Urine Color YELLOW Urine Appearance CLEAR Urine pH 6.0 (5.0-8.0) Ur Specific [place] 1.010 (1.001-1.035) Urine Protein NEGATIVE (NEGATIVE) mg/dL Urine Glucose (UA) NEGATIVE (NEGATIVE) mg/dL Urine Ketones NEGATIVE (NEGATIVE) mg/dL Urine Occult Blood NEGATIVE (NEGATIVE) Urine Nitrite NEGATIVE (NEGATIVE) Urine Bilirubin NEGATIVE (NEGATIVE) Urine Urobilinogen 1.0 (<2.0) EU/dL Ur Leukocyte Esterase TRACE (NEGATIVE) Urine RBC 0-1 (0-2/HPF) Urine WBC 1-2 (0-5/HPF) Ur Epithelial Cells FEW (NONE-FEW) Urine Bacteria FEW (NEGATIVE) Meds: Medications Generic Name Dose Route Start Last Admin Trade Name Freq PRN Reason Stop Dose Admin Sodium Chloride 250 mls @ 999 mls/hr 04/28/17 20:45 04/28/17 21:08 Normal Saline IV 999 mls/hr STAT ASIYA Administration Sodium Chloride 10 ml 04/28/17 20:41 04/28/17 20:45 Saline Flush FLUSH 10 ml ASDIRECTED PRN Administration Keep Vein Open Sodium Chloride 2.5 ml 04/28/17 20:41 04/28/17 20:46 Saline Flush FLUSH 2.5 ml ASDIRECTED PRN Administration Keep Vein Open Discontinued Medications Generic Name Dose Route Start Last Admin Trade Name Freq PRN Reason Stop Dose Admin Ketorolac Tromethamine 15 mg 04/28/17 20:41 04/28/17 21:01 Toradol IVPUSH 04/28/17 20:42 15 mg ONETIME ONE Administration Departure - Departure Time of Disposition: 23:59 Disposition: Home, Self-Care 01 Condition: Good Clinical Impression: Multiple contusions Fall Qualifiers: Encounter type: initial encounter Qualified Code(s): W19.XXXA - Unspecified fall, initial encounter - Discharge Information Referrals: PCP,None [Primary Care Provider] - Forms: ED Department Discharge Additional Instructions: The following information is given to patients seen in the emergency department who are being discharged to home. This information is to outline your options for follow-up care. We provide all patients seen in our emergency department with a follow-up referral. The need for follow-up, as well as the timing and circumstances, are variable depending upon the specifics of your emergency department visit. If you don't have a primary care physician on staff, we will provide you with a referral. We always advise you to contact your personal physician following an emergency department visit to inform them of the circumstance of the visit and for follow-up with them and/or the need for any referrals to a consulting specialist. The emergency department will also refer you to a specialist when appropriate. This referral assures that you have the opportunity for followup care with a specialist. All of these measure are taken in an effort to provide you with optimal care, which includes your followup. Under all circumstances we always encourage you to contact your private physician who remains a resource for coordinating your care. When calling for followup care, please make the office aware that this follow-up is from your recent emergency room visit. If for any reason you are refused follow-up, please contact the [facility] emergency department at and ask to speak to the emergency department charge nurse. [address] [place] [address] Please contact and follow-up with Dr. Darrel Velazquez as we spoke about. Ice to areas of pain and swelling for the next 24 hours and then switch to heat. Please expect pain and aches for the next several days to one week. Use over-the -counter Tylenol, 500 mg per dose, or low-dose ibuprofen, no higher than 400 mg every 6-8 hours, for pain. Please return to ER as needed as discussed - My Orders Last 24 Hours: My Active Orders 04/28/17 20:39 Cardiac Monitoring [RC] . DIRECTED EKG Documentation Completion [RC] STAT Oxygen Therapy, ED [RC] ASDIRECTED Pulse Oximetry [RC] ASDIRECTED Saline Lock Insert [OM.PC] Stat 04/28/17 20:40 Abdomen Pelvis w Cont [CT] Stat Cervical Spine wo Cont [CT] Stat Chest w Cont [CT] Stat Head wo Cont [CT] Stat Shoulder Comp Lt [CR] Stat Shoulder Comp Rt [CR] Stat 04/28/17 20:41 Knee 3V Lt [CR] Stat Knee 3V Rt [CR] Stat Sodium Chloride 0.9% [Saline Flush] 10 ml FLUSH ASDIRECTED PRN Sodium Chloride 0.9% [Saline Flush] 2.5 ml FLUSH ASDIRECTED PRN 04/28/17 20:45 Sodium Chloride 0.9% [Normal Saline] 250 ml IV STAT 04/28/17 20:49 Hip Min 2V or 3V w Pelvis Rt [CR] Stat - Assessment/Plan Last 24 Hours: My Active Orders 04/28/17 20:39 Cardiac Monitoring [RC] . DIRECTED EKG Documentation Completion [RC] STAT Oxygen Therapy, ED [RC] ASDIRECTED Pulse Oximetry [RC] ASDIRECTED Saline Lock Insert [OM.PC] Stat 04/28/17 20:40 Abdomen Pelvis w Cont [CT] Stat Cervical Spine wo Cont [CT] Stat Chest w Cont [CT] Stat Head wo Cont [CT] Stat Shoulder Comp Lt [CR] Stat Shoulder Comp Rt [CR] Stat 04/28/17 20:41 Knee 3V Lt [CR] Stat Knee 3V Rt [CR] Stat Sodium Chloride 0.9% [Saline Flush] 10 ml FLUSH ASDIRECTED PRN Sodium Chloride 0.9% [Saline Flush] 2.5 ml FLUSH ASDIRECTED PRN 04/28/17 20:45 Sodium Chloride 0.9% [Normal Saline] 250 ml IV STAT 04/28/17 20:49 Hip Min 2V or 3V w Pelvis Rt [CR] Stat
[2017-04-28 21:22] LABS: CHLORIDE,CL 107 mmol/L (98-110); SODIUM,NA 140 mmol/L (136-146)
[2017-04-29] MEDS ORDERED: Iopamidol 755 Mg/ML 100 ML Bottle IVPUSH STA (01:15)
--- NOTE | 2017-04-29 11:21 | CT ---
EXAM DATE: 04/28/17 PATIENT'S AGE: 89 Patient: BEBE NAGEL Facility: [place], [place] Site . Site : 1925 Study: CT Head [id number]/12/2017 10:54:03 PM Ordering Physician: Tiffanie Andrade Final Report: INDICATION: Fall TECHNIQUE: CT head without contrast. COMPARISON: None FINDINGS: CSF spaces: Within normal limits for age. Brain parenchyma: The tolentino-white differentiation is normal. No sign of mass, hemorrhage, or midline shift. Skull base and calvarium: Mild ethmoid sinus mucosal thickening. The visualized orbits are grossly unremarkable. No skull fractures. IMPRESSION: Atraumatic appearance of the brain. Dictated by Trey Odell MD @ 04/28/2017 11:12:15 PM Dictated by: Trey Odell MD @ 04/28/2017 23:12:18 (Electronic Signature) Report Signed by Proxy. MTDAbel
--- NOTE | 2017-04-29 11:22 | CT ---
EXAM DATE: 04/28/17 PATIENT'S AGE: 89 Patient: BEBE NAGEL Facility: [place], [place] Site . Site : 1925 Study: CT Spine Cervical [id number]/12/2017 10:54:22 PM Ordering Physician: Tiffanie Andrade Final Report: INDICATION: Fall TECHNIQUE: CT cervical spine without contrast. COMPARISON: None. FINDINGS: Vertebral alignment: Grade 1 anterolisthesis C6 over C7. Vertebrae: There are no fractures or suspicious bony lesions. Discs and facet joints: Multilevel degenerative changes. Extraspinal findings: Prevertebral soft tissues, visualized airway, and visualized lungs are unremarkable. IMPRESSION: No evidence of acute cervical spine trauma. Multilevel degenerative changes. Grade 1 anterolisthesis C6 over C7. Dictated by Trey Odell MD @ 04/28/2017 11:00:59 PM Dictated by: Trey Odell MD @ 04/28/2017 23:01:07 (Electronic Signature) Report Signed by Proxy. MARIBEL
--- NOTE | 2017-04-29 11:23 | CT ---
EXAM DATE: 04/28/17 PATIENT'S AGE: 89 Patient: BEBE NAGEL Facility: [place], [place] Site . Site : 1925 Study: CT Abdomen/Pelvis [id number]/12/2017 10:56:22 PM Ordering Physician: Tiffanie Andrade Final Report: INDICATION: Fall TECHNIQUE: CT abdomen and pelvis acquired with IV contrast. 100 cc Isovue 370 COMPARISON: None FINDINGS: Lower chest: Small hiatal hernia. Liver: Unremarkable. Spleen: Unremarkable. Pancreas: Unremarkable. Gallbladder and bile ducts: Unremarkable. Kidneys: Unremarkable. Adrenal glands: Unremarkable. GI tract: Diffuse colonic fecal retention. Nonspecific fat stranding involving the right lower quadrant. The appendix is not definitively demonstrated. Vascular structures: Unremarkable. Lymph nodes: Unremarkable. Miscellaneous: Unremarkable. No free air or significant free fluid. Pelvic Organs: Unremarkable. Bones: Degenerative changes involving the lumbar spine and hip joints. Scoliosis thoracolumbar spine. Moderate biconcave endplate compression deformity L1 vertebral body with a chronic appearance. IMPRESSION: Atraumatic appearance of the abdomen and pelvis. Dictated by Trey Odell MD @ 04/28/2017 11:20:11 PM Dictated by: Trey Odell MD @ 04/28/2017 23:20:20 (Electronic Signature) Report Signed by Proxy. MARIBEL
--- NOTE | 2017-04-29 11:24 | CT ---
EXAM DATE: 04/28/17 PATIENT'S AGE: 89 Patient: BEBE NAGEL Facility: [place], [place] Site . Site : 1925 Study: CT Chest [id number]/12/2017 10:59:51 PM Ordering Physician: Tiffanie Andrade Final Report: INDICATION: Fall TECHNIQUE: CT chest was acquired with IV contrast. 100 cc Isovue 370 COMPARISON: None FINDINGS: Cardiovascular structures: Heart size is normal. Thoracic aorta and main pulmonary artery are normal in caliber. Tortuosity of the thoracic aorta. Mediastinum and deborah: No mass or adenopathy. Hiatal hernia. Lungs: Clear. Pleura and pericardium: No effusions. Chest wall and axilla: No mass or adenopathy. Bones: Scoliosis and degenerative changes thoracic spine. Upper abdomen: Unremarkable. IMPRESSION: Atraumatic appearance of the chest. Dictated by Trey Odell MD @ 04/28/2017 11:30:12 PM Dictated by: Trey Odell MD @ 04/28/2017 23:30:19 (Electronic Signature) Report Signed by Proxy. [facility]
--- NOTE | 2017-04-29 11:25 | CR ---
EXAM DATE: 04/28/17 PATIENT'S AGE: 89 Patient: BEBE NAGEL Facility: [place], [place] Site . Site : 1925 Study: XRay Shoulder Left [id number]/12/2017 11:19:01 PM Ordering Physician: Tiffanie Andrade Final Report: INDICATION: Fall TECHNIQUE: Two views left shoulder COMPARISON: 08/18/2016. FINDINGS: Bones: Alignment is normal. No fractures or bone lesions. Joint spaces: Remodeling of the glenoid and humeral head with extensive degenerative changes. Soft tissues: Unremarkable. IMPRESSION: No evidence of acute trauma. Remodeling of the glenoid and humeral head with extensive degenerative changes. Dictated by Trey Odell MD @ 04/28/2017 11:22:23 PM Dictated by: Trey Odell MD @ 04/28/2017 23:22:32 (Electronic Signature) Report Signed by Proxy. MARIBEL
--- NOTE | 2017-04-29 11:26 | CR ---
EXAM DATE: 04/28/17 PATIENT'S AGE: 89 Patient: BEBE NAGEL Facility: [place], [place] Site . Site : 1925 Study: XRay Knee [id number]/12/2017 11:25:42 PM Ordering Physician: Tiffanie Andrade Final Report: INDICATION: FELL, KNEE PAIN TECHNIQUE: Knee radiograph 2 views COMPARISON: None FINDINGS: Bones: Alignment is normal. No acute fractures or aggressive bone lesions identified. Joint spaces: The patient is status post a total knee arthroplasty with patellar resurfacing. No radiographic evidence of asymmetric polyethylene wear, prosthetic loosening or infection is seen. Soft tissues: Unremarkable. IMPRESSION: 1. There is an unremarkable postoperative appearance of the knee. Dictated by: Kye Moeller MD @ 04/28/2017 23:28:57 (Electronic Signature) Report Signed by Proxy. MARIBEL
--- NOTE | 2017-04-29 11:27 | CR ---
EXAM DATE: 04/28/17 PATIENT'S AGE: 89 Patient: BEBE NAGEL Facility: [place], [place] Site . Site : 1925 Study: XRay Shoulder Right [id number]/12/2017 11:32:51 PM Ordering Physician: Tiffanie Andrade Final Report: INDICATION: Status post fall, 89-year-old female. TECHNIQUE: Right shoulder, two views COMPARISON: None FINDINGS: Severe degenerative changes of right shoulder with high positioning of the humeral head relative to the glenoid, compatible with chronic rotator cuff injury. Degenerate changes of right AC joint. No acute fracture identified. Visualized upper right ribs intact. Right upper lung zone clear. IMPRESSION: 1. Severe right shoulder degenerative changes with chronic rotator cuff injury. No acute fracture or dislocation. Dictated by Carl Leone MD @ 04/28/2017 11:40:35 PM Dictated by: Carl Leone MD @ 04/28/2017 23:40:39 (Electronic Signature) Report Signed by Proxy. MARIBEL
--- NOTE | 2017-04-29 11:29 | CR ---
EXAM DATE: 04/28/17 PATIENT'S AGE: 89 Patient: BEBE NAGEL Facility: [place], [place] Site . Site : 1925 Study: XRay Hip Right w/pelvis [id number]/12/2017 11:39:33 PM Ordering Physician: Tiffanie Andrade Final Report: INDICATION: Trauma, 89-year-old female. TECHNIQUE: Pelvis radiograph 1 view Hip radiograph 2 views COMPARISON: CT abdomen and pelvis dated 04/28/2017. FINDINGS: Severe degenerative changes of both hips with significant joint space narrowing , osteophytes, and subchondral acetabular sclerosis. No fracture identified. Evaluation of lower sacrum obscured due to contrast in the bladder. Lower lumbar spine degenerative changes. Visualized proximal right femur intact. IMPRESSION: 1. No acute pelvic or right hip fracture. Dictated by Carl Leone MD @ 04/28/2017 11:43:45 PM Dictated by: Carl Leone MD @ 04/28/2017 23:43:51 (Electronic Signature) Report Signed by Proxy. [facility]
--- NOTE | 2017-04-29 11:30 | CR ---
EXAM DATE: 04/28/17 PATIENT'S AGE: 89 Patient: BEBE NAGEL Facility: [place], [place] Site . Site : 1925 Study: XRay Knee Right [id number]/12/2017 11:39:55 PM Ordering Physician: Tiffanie Andrade Final Report: INDICATION: Pain, trauma. 89-year-old female. TECHNIQUE: Knee radiographs 3 views COMPARISON: None FINDINGS: Patient status post right knee arthroplasty. Anatomic alignment of surgical hardware. No fracture or joint effusion. Visualized osseous structures are demineralized. IMPRESSION: 1. No acute right knee fracture or joint effusion. Dictated by Carl Leone MD @ 04/28/2017 11:46:52 PM Dictated by: Carl Leone MD @ 04/28/2017 23:46:59 (Electronic Signature) Report S[facility] Proxy. [facility]
== END 2017-04-29 00:10 | disposition home or self-care (01) ==
LOC: MW.ED 19:58
DX: S80.01XA Contusion of right knee, initial encounter (principal); S80.02XA Contusion of left knee, initial encounter; S70.01XA Contusion of right hip, initial encounter; S40.011A Contusion of right shoulder, initial encounter; S30.1XXA Contusion of abdominal wall, initial encounter; S00.83XA Contusion of other part of head, initial encounter; S40.012A Contusion of left shoulder, initial encounter; Z79.899 Other long term (current) drug therapy; W10.9XXA Fall (on) (from) unspecified stairs and steps, initial encounter
CPT/HCPCS: 70450; 71260; 72125; 73030; 73502; 73562; 74177; 80053; 81001; 82550; 84484; 85025; 85610; 96374; 99284; J1885; J7050; 99285